=== PATIENT | male | born 1930 | race Caucasian/White ===

== ENCOUNTER 2017-04-21 18:02 | Inpatient (IN) | payer MEDICARE, OTHER ==
[~2017-04-21] VITALS: Ht 175.3 cm; Wt 57.4 kg
[~2017-04-21 18:02] MED LIST: ACID1TAB3 PO; ACID1TAB7 PO; CEFD300C37 PO; CYAN10008 PO; DRON400T PO; FIDA200T PO; FLUT1AER INH; FLUT1DIS3 INH; MAGN400T26 PO; METR500T PO; OMEP-110 PO; TAMS0.4C2 PO; TRAM50TA2 PO; VANC1VIA3 PO; VANC250C2 PO; WARF2TAB PO; WARF3TAB PO
[2017-04-21] MEDS ORDERED: METO25TA35 PO (18:26)
[2017-04-21] MEDS ORDERED: CHOL10002 PO (18:29)
[2017-04-21] MEDS ORDERED: MORPHINE SULFATE 4 MG/ML, 1ML IVPush PRN ×2 (18:30→21:30)
[2017-04-21] MEDS ORDERED: ONDANSETRON 2MG/ML, 2ML IVPush ONE (18:30)
[2017-04-21 18:34] LABS: HEMATOCRIT 37.2 % (39.2-51.8); HEMOGLOBIN 12.4 g/dL (13.7-18.0); WHITE BLOOD COUNT 7.4 x10^3/uL (3.4-10)
[2017-04-21 18:45] LABS: BLOOD UREA NITROGEN 28 mg/dL (7-18)
[2017-04-21 18:57] LABS: IS PT STATUS REG ER OR PRE ER? YES
[2017-04-21] MEDS ORDERED: SODIUM CHLORIDE 0.9% 1,000ML IVBOLUS ONE (19:00)
[2017-04-21] MEDS ORDERED: MORPHINE SULFATE 4 MG/ML, 1ML ONE (19:05)
[2017-04-21] MEDS ORDERED: ONDANSETRON 2MG/ML, 2ML ONE (19:05)
[2017-04-21] MEDS ORDERED: OMNIPAQUE 350 MG/ML, 100ML BOTTLE ONE (20:11)
[2017-04-21] MEDS ORDERED: SODIUM CHLORIDE 0.9% 1,000 ML IV ONE (21:16)
[2017-04-21] MEDS ORDERED: ONDANSETRON 2MG/ML, 2ML IVPush PRN (21:30)
[2017-04-21] MEDS ORDERED: ACETAMINOPHEN 325 MG TABLET PO PRN (22:00)
[2017-04-21] MEDS ORDERED: TEMAZEPAM 15 MG CAPSULE PO PRN (22:00)
[2017-04-21] MEDS ORDERED: ONDANSETRON ODT 4 MG PO PRN (22:00)
[2017-04-21] MEDS ORDERED: POLYETHYLENE GLYCOL 17 GM PACKET PO PRN (22:00)
[2017-04-21] MEDS ORDERED: LABETALOL 5MG/ML, 20ML IVPush PRN (22:00)
[2017-04-21] MEDS ORDERED: WARFARIN 2 MG TABLET PO-COUM SCH (22:00)
[2017-04-21 22:26] VITALS: BP 131/84
[2017-04-21] MEDS ORDERED: WARFARIN 2 MG TABLET PO-COUM ONE (23:00)
[2017-04-21] MEDS: SODIUM CHLORIDE 0.9% 1,000 ML IV SCH (23:09)
[2017-04-22] MEDS ORDERED: morphine SULFATE 10 MG/ML, 1ML IVPush PRN (01:00)
[2017-04-22] MEDS ORDERED: MORPHINE SULFATE 4 MG/ML, 1ML IVPush PRN (01:00)
[2017-04-22 01:23] LABS: IS PT STATUS REG ER OR PRE ER? NO
[2017-04-22 01:30] VITALS: BP 122/75
[2017-04-22] MEDS ORDERED: ALBUTEROL SULFATE 2.5 MG/3 ML NPPB PRN (04:00)
[2017-04-22 06:58] LABS: HEMATOCRIT 37.9 % (39.2-51.8); HEMOGLOBIN 12.8 g/dL (13.7-18.0); WHITE BLOOD COUNT 11.7 x10^3/uL (3.4-10)
[2017-04-22 07:04] LABS: BLOOD UREA NITROGEN 23 mg/dL (7-18)
[2017-04-22 07:07] LABS: IS PT STATUS REG ER OR PRE ER? NO
[2017-04-22 08:22] VITALS: BP 152/75
[2017-04-22] MEDS ORDERED: CHOLECALCIFEROL 1,000 UNIT TABLET PO SCH (09:00)
[2017-04-22] MEDS: ALBUTEROL SULFATE 2.5 MG/3 ML NPPB SCH ×3 (09:17→21:39)
[2017-04-22] MEDS: CYANOCOBALAMIN 1,000 MCG TABLET PO SCH (10:13)
[2017-04-22] MEDS: METOPROLOL TARTRATE 25 MG TABLET PO SCH (10:13)
[2017-04-22] MEDS: OMEPRAZOLE 20 MG CAPSULE.DR PO SCH (10:13)
[2017-04-22] MEDS: TAMSULOSIN 0.4 MG CAP.ER.24H PO SCH (10:13)
[2017-04-22] MEDS: FLUTICASONE/VILANTEROL 100-25MCG/INH INH SCH (11:20)
[2017-04-22] MEDS: LIDODERM 5% PATCH TD SCH (15:25)
[2017-04-22] MEDS: METHOCARBAMOL 500 MG TABLET PO SCH ×2 (15:25→20:16)
[2017-04-22 15:41] VITALS: BP 123/73
[2017-04-22] MEDS ORDERED: WARFARIN 2 MG TABLET PO-COUM SCH (18:00)
[2017-04-22] MEDS: SODIUM CHLORIDE 0.9% 1,000 ML IV SCH (18:07)
[2017-04-22 19:20] VITALS: BP 114/63
[2017-04-23 01:10] VITALS: BP 127/72
[2017-04-23 06:11] LABS: HEMOGLOBIN 11.9 g/dL (13.7-18.0); WHITE BLOOD COUNT 8.9 x10^3/uL (3.4-10)
[2017-04-23 06:13] LABS: BLOOD UREA NITROGEN 21 mg/dL (7-18)
[2017-04-23] MEDS: METHOCARBAMOL 500 MG TABLET PO SCH ×4 (06:26→21:19)
[2017-04-23 06:36] VITALS: BP 139/83
[2017-04-23] MEDS: METOPROLOL TARTRATE 25 MG TABLET PO SCH ×3 (09:00→18:40)
[2017-04-23] MEDS: OMEPRAZOLE 20 MG CAPSULE.DR PO SCH (09:31)
[2017-04-23] MEDS: CYANOCOBALAMIN 1,000 MCG TABLET PO SCH (09:31)
[2017-04-23] MEDS: TAMSULOSIN 0.4 MG CAP.ER.24H PO SCH (09:32)
[2017-04-23] MEDS: ALBUTEROL SULFATE 2.5 MG/3 ML NPPB SCH ×2 (09:32→14:00)
[2017-04-23] MEDS: FLUTICASONE/VILANTEROL 100-25MCG/INH INH SCH (09:32)
[2017-04-23] MEDS: HYDROcodone/APAP 5/325 TABLET PO PRN ×2 (12:25→15:57)
[2017-04-23] MEDS: SODIUM CHLORIDE 0.9% 1,000 ML IV SCH ×2 (12:28→18:31)
[2017-04-23 14:19] VITALS: BP 108/59
[2017-04-23] MEDS: LIDODERM 5% PATCH TD SCH (15:58)
[2017-04-23] MEDS ORDERED: CHOLECALCIFEROL 1,000 UNIT TABLET PO SCH (18:00)
[2017-04-23] MEDS ORDERED: WARFARIN 2 MG TABLET PO-COUM SCH (18:00)
[2017-04-23 19:18] VITALS: BP 99/61
[2017-04-23] MEDS ORDERED: METOPROLOL TARTRATE 25 MG TABLET PO SCH (21:00)
[2017-04-23] MEDS ORDERED: ALBUTEROL SULFATE 2.5 MG/3 ML NPPB PRN (21:30)
[2017-04-24 01:01] VITALS: BP 115/76
[2017-04-24] MEDS: SODIUM CHLORIDE 0.9% 1,000 ML IV SCH (03:59)
[2017-04-24] MEDS: METHOCARBAMOL 500 MG TABLET PO SCH ×2 (06:13→10:06)
[2017-04-24] MEDS: HYDROcodone/APAP 5/325 TABLET PO PRN ×2 (06:17→10:06)
[2017-04-24 08:00] VITALS: BP 103/65
[2017-04-24] MEDS: TAMSULOSIN 0.4 MG CAP.ER.24H PO SCH (10:06)
[2017-04-24] MEDS: OMEPRAZOLE 20 MG CAPSULE.DR PO SCH (10:06)
[2017-04-24] MEDS: METOPROLOL TARTRATE 25 MG TABLET PO SCH (10:06)
[2017-04-24] MEDS: CYANOCOBALAMIN 1,000 MCG TABLET PO SCH (10:06)
[2017-04-24] MEDS: FLUTICASONE/VILANTEROL 100-25MCG/INH INH SCH (10:06)
[2017-04-24 13:27] VITALS: BP 105/60
[2017-04-24] MEDS ORDERED: METO25TA35 PO (16:00)
[2017-04-24] MEDS ORDERED: ACET325T14 PO (16:00)
[2017-04-24] MEDS ORDERED: CHOL10002 PO (16:00)
[2017-04-24] MEDS ORDERED: TRAM50TA2 PO (16:00)
[2017-04-24] MEDS ORDERED: ATOR20TA9 PO (16:00)
[2017-04-24] MEDS ORDERED: WARF1TAB PO-COUM (16:00)
[2017-04-24] MEDS ORDERED: LIDO700A5 TD (16:00)
[2017-04-24] MEDS ORDERED: METH500T7 PO (16:00)
[2017-04-24] MEDS ORDERED: WARFARIN 1 MG TABLET PO-COUM SCH (18:00)
[2017-04-24] MEDS ORDERED: ATORVASTATIN 20 MG TABLET PO SCH (21:00)
== END 2017-04-24 18:44 | DRG 291 ==
LOC: ED 18:49 → EDIP 21:16 → 5SO 22:24
DX: I13.0 Hypertensive heart and chronic kidney disease with heart failure and stage 1 through stage 4 chronic kidney disease, or unspecified chronic kidney disease (principal); J96.20 Acute and chronic respiratory failure, unspecified whether with hypoxia or hypercapnia; J18.9 Pneumonia, unspecified organism; I48.92 Unspecified atrial flutter; N18.4 Chronic kidney disease, stage 4 (severe); D68.59 Other primary thrombophilia; M48.54XA Collapsed vertebra, not elsewhere classified, thoracic region, initial encounter for fracture; G90.8 Other disorders of autonomic nervous system; I48.0 Paroxysmal atrial fibrillation; D53.1 Other megaloblastic anemias, not elsewhere classified; D63.8 Anemia in other chronic diseases classified elsewhere; G25.0 Essential tremor; I34.0 Nonrheumatic mitral (valve) insufficiency; I35.8 Other nonrheumatic aortic valve disorders; I50.9 Heart failure, unspecified; I65.29 Occlusion and stenosis of unspecified carotid artery; J44.9 Chronic obstructive pulmonary disease, unspecified; K21.9 Gastro-esophageal reflux disease without esophagitis; K44.9 Diaphragmatic hernia without obstruction or gangrene; Z66 Do not resuscitate; Z79.01 Long term (current) use of anticoagulants; Z80.0 Family history of malignant neoplasm of digestive organs; Z86.73 Personal history of transient ischemic attack (TIA), and cerebral infarction without residual deficits; Z87.11 Personal history of peptic ulcer disease; W19.XXXA Unspecified fall, initial encounter; Y93.89 Activity, other specified; Y92.89 Other specified places as the place of occurrence of the external cause; Y99.8 Other external cause status; R33.8 Other retention of urine
CPT/HCPCS: 36415; 70450; 71275; 72125; 72128; 72131; 80048; 80061; 82040; 82306; 82607; 82746; 83605; 83735; 84100; 84145; 84439; 84443; 84484; 85025; 85610; 93005; 93306; 93880; 94640; 96361; 96374; 96375; J2405; J7613; Q9967; J2270; J7030

== ENCOUNTER 2017-05-09 20:26 | Inpatient (IN) | payer MEDICARE, OTHER ==
[~2017-05-09] VITALS: Ht 175.3 cm; Wt 52.1 kg
[~2017-05-09 20:26] MED LIST changes: +ACET325T14 PO; +ATOR20TA9 PO; +CHOL10002 PO; +CYAN100072 PO; -CYAN10008 PO; +LIDO700A5 TD; +METH500T7 PO; +METO25TA35 PO; +WARF1TAB PO-COUM
[2017-05-09] MEDS ORDERED: DIPH,PERTUSS(ACELL),TET VAC/PF 0.5 ML IM-VACC ONE (21:00)
[2017-05-09 21:08] LABS: HEMATOCRIT 37.2 % (39.2-51.8); HEMOGLOBIN 12.3 g/dL (13.7-18.0); WHITE BLOOD COUNT 7.7 x10^3/uL (3.4-10)
[2017-05-09 21:19] LABS: ASPARTATE AMINO TRANSFERASE 20 U/L (15-37); BLOOD UREA NITROGEN 39 mg/dL (7-18)
[2017-05-09] MEDS: LIDODERM 5% PATCH TD SCH (23:30)
[2017-05-09] MEDS ORDERED: ACETAMINOPHEN 325 MG TABLET PO PRN (23:30)
[2017-05-10] VITALS (7 sets, daily range): BP systolic 113–147; BP diastolic 66–85
[2017-05-10] MEDS ORDERED: DIPH,PERTUSS(ACELL),TET VAC/PF 0.5 ML IM-VACC ONE (00:02)
[2017-05-10] MEDS: CHOLECALCIFEROL 1,000 UNIT TABLET PO SCH (09:16)
[2017-05-10] MEDS: METOPROLOL TARTRATE 25 MG TABLET PO SCH ×2 (09:16→21:01)
[2017-05-10] MEDS: OMEPRAZOLE 20 MG CAPSULE.DR PO SCH (09:16)
[2017-05-10] MEDS: TAMSULOSIN 0.4 MG CAP.ER.24H PO SCH (09:16)
[2017-05-10] MEDS: CYANOCOBALAMIN 1,000 MCG TABLET PO SCH (09:16)
[2017-05-10 16:27] LABS: ASPARTATE AMINO TRANSFERASE 17 U/L (15-37); BLOOD UREA NITROGEN 29 mg/dL (7-18)
[2017-05-10] MEDS: ATORVASTATIN 20 MG TABLET PO SCH (21:01)
[2017-05-10] MEDS: LIDODERM 5% PATCH TD SCH (21:22)
[2017-05-11 04:00] VITALS: BP 121/72
[2017-05-11 05:12] LABS: HEMATOCRIT 37.3 % (39.2-51.8); HEMOGLOBIN 12.3 g/dL (13.7-18.0); WHITE BLOOD COUNT 6.8 x10^3/uL (3.4-10)
[2017-05-11 07:24] VITALS: BP 117/64
[2017-05-11 10:03] LABS: HEMATOCRIT 39.4 % (39.2-51.8); HEMOGLOBIN 12.9 g/dL (13.7-18.0); WHITE BLOOD COUNT 8.1 x10^3/uL (3.4-10)
[2017-05-11 10:12] LABS: BLOOD UREA NITROGEN 28 mg/dL (7-18)
[2017-05-11] MEDS: CYANOCOBALAMIN 1,000 MCG TABLET PO SCH (10:28)
[2017-05-11] MEDS: METOPROLOL TARTRATE 25 MG TABLET PO SCH ×2 (10:28→20:51)
[2017-05-11] MEDS: TAMSULOSIN 0.4 MG CAP.ER.24H PO SCH (10:28)
[2017-05-11] MEDS: CHOLECALCIFEROL 1,000 UNIT TABLET PO SCH (10:28)
[2017-05-11] MEDS: OMEPRAZOLE 20 MG CAPSULE.DR PO SCH (10:28)
[2017-05-11 13:46] VITALS: BP 103/64
[2017-05-11 16:31] VITALS: BP 118/56
[2017-05-11 20:41] VITALS: BP 132/87
[2017-05-11] MEDS: ATORVASTATIN 20 MG TABLET PO SCH (20:51)
[2017-05-11] MEDS: LIDODERM 5% PATCH TD SCH (23:30)
[2017-05-12 03:35] VITALS: BP 117/66
[2017-05-12 07:25] VITALS: BP_SYST 117; BP_SYST 125; BP_DIAS 45; BP_DIAS 82
[2017-05-12 07:27] VITALS: BP 135/81
[2017-05-12 07:29] VITALS: BP 123/76
[2017-05-12] MEDS: CYANOCOBALAMIN 1,000 MCG TABLET PO SCH (09:45)
[2017-05-12] MEDS: METOPROLOL TARTRATE 25 MG TABLET PO SCH ×2 (09:46→21:16)
[2017-05-12] MEDS: TAMSULOSIN 0.4 MG CAP.ER.24H PO SCH (09:46)
[2017-05-12] MEDS: OMEPRAZOLE 20 MG CAPSULE.DR PO SCH (09:46)
[2017-05-12] MEDS: CHOLECALCIFEROL 1,000 UNIT TABLET PO SCH (09:48)
[2017-05-12 13:17] VITALS: BP 104/52
[2017-05-12 18:49] VITALS: BP 116/60
[2017-05-12] MEDS: LIDODERM 5% PATCH TD SCH ×2 (21:16→21:17)
[2017-05-12] MEDS: ATORVASTATIN 20 MG TABLET PO SCH (21:16)
[2017-05-13 08:00] VITALS: BP 120/74
[2017-05-13] MEDS: OMEPRAZOLE 20 MG CAPSULE.DR PO SCH (09:24)
[2017-05-13] MEDS: METOPROLOL TARTRATE 25 MG TABLET PO SCH (09:24)
[2017-05-13] MEDS: CYANOCOBALAMIN 1,000 MCG TABLET PO SCH (09:24)
[2017-05-13] MEDS: CHOLECALCIFEROL 1,000 UNIT TABLET PO SCH (09:24)
[2017-05-13] MEDS: TAMSULOSIN 0.4 MG CAP.ER.24H PO SCH (09:24)
[2017-05-13 10:01] LABS: HEMATOCRIT 40.1 % (39.2-51.8); HEMOGLOBIN 13.1 g/dL (13.7-18.0); WHITE BLOOD COUNT 8.1 x10^3/uL (3.4-10)
[2017-05-13 10:04] LABS: BLOOD UREA NITROGEN 35 mg/dL (7-18)
[2017-05-13 12:28] VITALS: BP 123/59
== END 2017-05-13 14:07 | disposition home or self-care (01) | DRG 604 ==
LOC: ED 21:08 → EDIP 22:35 → 4WST 05-10 00:19 → 4EST 05-11 20:13
PROVIDERS: ADMIT Hospitalist; ATTEND Hospitalist
PROC: 0HQ1XZZ Repair Face Skin, External Approach (ICD-10-PCS; principal; 2017-05-09)
DX: S00.03XA Contusion of scalp, initial encounter (principal); S06.5X9A Traumatic subdural hemorrhage with loss of consciousness of unspecified duration, initial encounter; J96.10 Chronic respiratory failure, unspecified whether with hypoxia or hypercapnia; N18.4 Chronic kidney disease, stage 4 (severe); D68.59 Other primary thrombophilia; M48.50XA Collapsed vertebra, not elsewhere classified, site unspecified, initial encounter for fracture; I13.0 Hypertensive heart and chronic kidney disease with heart failure and stage 1 through stage 4 chronic kidney disease, or unspecified chronic kidney disease; I50.9 Heart failure, unspecified; E44.1 Mild protein-calorie malnutrition; Z68.1 Body mass index [BMI] 19.9 or less, adult; S01.112A Laceration without foreign body of left eyelid and periocular area, initial encounter; G62.9 Polyneuropathy, unspecified; I48.0 Paroxysmal atrial fibrillation; J44.9 Chronic obstructive pulmonary disease, unspecified; G25.0 Essential tremor; W01.0XXA Fall on same level from slipping, tripping and stumbling without subsequent striking against object, initial encounter; D53.9 Nutritional anemia, unspecified; D63.8 Anemia in other chronic diseases classified elsewhere; D75.89 Other specified diseases of blood and blood-forming organs; K21.9 Gastro-esophageal reflux disease without esophagitis; N40.1 Benign prostatic hyperplasia with lower urinary tract symptoms; Z66 Do not resuscitate; Z80.0 Family history of malignant neoplasm of digestive organs; Z86.19 Personal history of other infectious and parasitic diseases; Z88.8 Allergy status to other drugs, medicaments and biological substances; Z86.73 Personal history of transient ischemic attack (TIA), and cerebral infarction without residual deficits; Z87.11 Personal history of peptic ulcer disease; Y93.89 Activity, other specified; Y92.89 Other specified places as the place of occurrence of the external cause; Y99.8 Other external cause status
CPT/HCPCS: 12011; 36415; 70450; 70486; 72125; 80048; 80053; 82040; 85025; 85610; 90471; 90715; 93005

== ENCOUNTER 2017-05-29 07:53 | Inpatient (IN) | payer MEDICARE, OTHER ==
[~2017-05-29] VITALS: Ht 180.3 cm; Wt 52.4 kg
[2017-05-29] MEDS ORDERED: SODIUM CHLORIDE 0.9% 1,000 ML IV ONE (08:04)
[2017-05-29] MEDS ORDERED: LORazepam 2 MG/ML, 1ML ONE (08:05)
[2017-05-29] MEDS ORDERED: LORazepam 2 MG/ML, 1ML IVPush ONE (08:30)
[2017-05-29] MEDS ORDERED: SODIUM CHLORIDE 0.9% 1,000ML IVBOLUS ONE (08:30)
[2017-05-29 08:41] LABS: HEMATOCRIT 35.3 % (39.2-51.8); HEMOGLOBIN 11.8 g/dL (13.7-18.0); WHITE BLOOD COUNT 11.7 x10^3/uL (3.4-10)
[2017-05-29 08:48] LABS: BLOOD UREA NITROGEN 20 mg/dL (7-18)
[2017-05-29] MEDS ORDERED: METO50TA82 PO (10:30)
[2017-05-29 11:38] LABS: IS PT STATUS REG ER OR PRE ER? YES
[2017-05-29] MEDS ORDERED: POLYETHYLENE GLYCOL 17 GM PACKET PO PRN (13:00)
[2017-05-29] MEDS ORDERED: hydrALAzine 20 MG/ML, 1ML IV PRN (13:00)
[2017-05-29] MEDS ORDERED: ONDANSETRON 2MG/ML, 2ML IVPush PRN (13:00)
[2017-05-29] MEDS ORDERED: BISACODYL 10 MG SUPP PR PRN (13:00)
[2017-05-29] MEDS ORDERED: ACETAMINOPHEN 325 MG TABLET PO PRN (13:00)
[2017-05-29] MEDS ORDERED: ONDANSETRON ODT 4 MG PO PRN (13:00)
[2017-05-29] MEDS ORDERED: DOCUSATE 100 MG CAPSULE PO PRN (13:00)
[2017-05-29] MEDS ORDERED: ALBUTEROL SULFATE 2.5 MG/3 ML NPPB PRN (14:00)
[2017-05-29] MEDS: DOXYCYCLINE 100MG TABLET PO SCH ×2 (14:19→21:34)
[2017-05-29] MEDS: CEFTRIAXONE PMX 1GM/50ML 50 ML IV SCH (14:19)
[2017-05-29] MEDS: METOPROLOL TARTRATE 50 MG TABLET PO SCH (14:19)
[2017-05-29] MEDS: SODIUM CHLORIDE 0.9% 1,000 ML IV SCH (14:19)
[2017-05-29] MEDS ORDERED: WARFARIN 1 MG TABLET PO-COUM ONE (18:00)
[2017-05-29] MEDS ORDERED: WARFARIN 1 MG TABLET PO-COUM SCH (18:00)
[2017-05-29] MEDS ORDERED: LORazepam 0.5MG TABLET PO PRN (18:00)
[2017-05-29 19:13] VITALS: BP 116/73
[2017-05-29 20:55] VITALS: BP 112/68
[2017-05-29] MEDS: FLUTICASONE/VILANTEROL 100-25MCG/INH INH SCH (21:00)
[2017-05-29] MEDS: GUAIFENESIN ER 600 MG TABLET PO SCH (21:34)
[2017-05-30 01:10] VITALS: BP 100/57
[2017-05-30] MEDS: SODIUM CHLORIDE 0.9% 1,000 ML IV SCH (02:29)
[2017-05-30 05:01] LABS: HEMATOCRIT 29.5 % (39.2-51.8); HEMOGLOBIN 9.9 g/dL (13.7-18.0); WHITE BLOOD COUNT 11.1 x10^3/uL (3.4-10)
[2017-05-30 05:03] LABS: BLOOD UREA NITROGEN 20 mg/dL (7-18)
[2017-05-30 05:06] LABS: ASPARTATE AMINO TRANSFERASE 14 U/L (15-37)
[2017-05-30 07:36] VITALS: BP 108/60
[2017-05-30] MEDS: DOXYCYCLINE 100MG TABLET PO SCH ×2 (08:56→21:00)
[2017-05-30] MEDS: CYANOCOBALAMIN 1,000 MCG TABLET PO SCH (08:56)
[2017-05-30] MEDS: GUAIFENESIN ER 600 MG TABLET PO SCH ×2 (08:57→21:00)
[2017-05-30] MEDS: METOPROLOL TARTRATE 50 MG TABLET PO SCH (08:57)
[2017-05-30] MEDS ORDERED: TAMSULOSIN 0.4 MG CAP.ER.24H PO SCH (09:00)
[2017-05-30] MEDS: FLUTICASONE/VILANTEROL 100-25MCG/INH INH SCH (10:03)
[2017-05-30] MEDS: CEFTRIAXONE PMX 1GM/50ML 50 ML IV SCH (13:17)
[2017-05-30 15:41] VITALS: BP 139/90
[2017-05-30] MEDS ORDERED: DO NOT GIVE MC SCH (18:00)
[2017-05-30 18:56] VITALS: BP 131/69
[2017-05-30] MEDS ORDERED: hydrALAzine 20 MG/ML, 1ML IV PRN (19:30)
[2017-05-30] MEDS ORDERED: POLYETHYLENE GLYCOL 17 GM PACKET PO PRN (19:30)
[2017-05-30] MEDS ORDERED: ONDANSETRON 2MG/ML, 2ML IVPush PRN (19:30)
[2017-05-30] MEDS ORDERED: ACETAMINOPHEN 325 MG TABLET PO PRN (19:30)
[2017-05-30] MEDS ORDERED: ONDANSETRON ODT 4 MG PO PRN (19:30)
[2017-05-30] MEDS ORDERED: DOCUSATE 100 MG CAPSULE PO PRN (19:30)
[2017-05-30] MEDS ORDERED: BISACODYL 10 MG SUPP PR PRN (19:30)
[2017-05-31 00:46] VITALS: BP 120/64
[2017-05-31 07:00] VITALS: BP 154/82
[2017-05-31] MEDS: GUAIFENESIN ER 600 MG TABLET PO SCH ×2 (08:34→21:25)
[2017-05-31] MEDS: TAMSULOSIN 0.4 MG CAP.ER.24H PO SCH (08:34)
[2017-05-31] MEDS: CYANOCOBALAMIN 1,000 MCG TABLET PO SCH (08:34)
[2017-05-31] MEDS: METOPROLOL TARTRATE 50 MG TABLET PO SCH (08:34)
[2017-05-31] MEDS: FLUTICASONE/VILANTEROL 100-25MCG/INH INH SCH (08:34)
[2017-05-31] MEDS: DOXYCYCLINE 100MG TABLET PO SCH ×2 (08:34→21:25)
[2017-05-31 12:25] VITALS: BP 147/72
[2017-05-31] MEDS: CEFTRIAXONE PMX 1GM/50ML 50 ML IV SCH (13:26)
[2017-05-31] MEDS ORDERED: WARFARIN 1 MG TABLET PO-COUM SCH (18:00)
[2017-05-31 20:27] VITALS: BP 140/84
[2017-05-31] MEDS: LOPERAMIDE 2 MG CAPSULE PO PRN (21:25)
[2017-06-01 03:53] VITALS: BP 135/64
[2017-06-01 05:33] LABS: BLOOD UREA NITROGEN 24 mg/dL (7-18)
[2017-06-01 05:36] LABS: HEMATOCRIT 30.8 % (39.2-51.8); HEMOGLOBIN 10.3 g/dL (13.7-18.0)
[2017-06-01 06:02] LABS: ASPARTATE AMINO TRANSFERASE 12 U/L (15-37)
[2017-06-01 08:27] VITALS: BP 139/82
[2017-06-01] MEDS: GUAIFENESIN ER 600 MG TABLET PO SCH ×2 (09:02→20:39)
[2017-06-01] MEDS: FLUTICASONE/VILANTEROL 100-25MCG/INH INH SCH (09:02)
[2017-06-01] MEDS: CYANOCOBALAMIN 1,000 MCG TABLET PO SCH (09:02)
[2017-06-01] MEDS: LOPERAMIDE 2 MG CAPSULE PO PRN (09:02)
[2017-06-01] MEDS: METOPROLOL TARTRATE 50 MG TABLET PO SCH (09:02)
[2017-06-01] MEDS: DOXYCYCLINE 100MG TABLET PO SCH ×2 (09:02→20:39)
[2017-06-01] MEDS: TAMSULOSIN 0.4 MG CAP.ER.24H PO SCH (09:02)
[2017-06-01] MEDS: CEFTRIAXONE PMX 1GM/50ML 50 ML IV SCH (12:00)
[2017-06-01 14:14] VITALS: BP 130/74
[2017-06-01] MEDS ORDERED: WARFARIN 1 MG TABLET PO-COUM ONE (18:00)
[2017-06-01 21:59] VITALS: BP 136/74
[2017-06-02 03:30] VITALS: BP 142/77
[2017-06-02 05:46] LABS: HEMATOCRIT 32.2 % (39.2-51.8); HEMOGLOBIN 10.8 g/dL (13.7-18.0); WHITE BLOOD COUNT 6.3 x10^3/uL (3.4-10)
[2017-06-02 05:56] LABS: BLOOD UREA NITROGEN 23 mg/dL (7-18)
[2017-06-02 07:12] VITALS: BP 125/84
[2017-06-02] MEDS: TAMSULOSIN 0.4 MG CAP.ER.24H PO SCH (07:14)
[2017-06-02] MEDS: CYANOCOBALAMIN 1,000 MCG TABLET PO SCH (07:14)
[2017-06-02] MEDS: GUAIFENESIN ER 600 MG TABLET PO SCH (07:14)
[2017-06-02] MEDS: METOPROLOL TARTRATE 50 MG TABLET PO SCH (07:14)
[2017-06-02] MEDS: DOXYCYCLINE 100MG TABLET PO SCH (07:14)
[2017-06-02] MEDS: FLUTICASONE/VILANTEROL 100-25MCG/INH INH SCH (07:14)
[2017-06-02] MEDS: LOPERAMIDE 2 MG CAPSULE PO PRN (08:40)
[2017-06-02] MEDS ORDERED: LACT1CAP24 PO (11:10)
[2017-06-02] MEDS ORDERED: DOXY100T PO (11:10)
[2017-06-02] MEDS ORDERED: CEFD300C37 PO (11:10)
[2017-06-02] MEDS ORDERED: WARFARIN 2 MG TABLET PO-COUM ONE (18:00)
== END 2017-06-02 12:20 | disposition home health service (06) | DRG 190 ==
LOC: ED 08:07 → EDIP 09:33 → 4EST 12:41 → DCLOUNGE 06-02 12:00
PROVIDERS: ADMIT Hospitalist; ATTEND Internal Medicine
DX: J44.0 Chronic obstructive pulmonary disease with (acute) lower respiratory infection (principal); J18.9 Pneumonia, unspecified organism; E43 Unspecified severe protein-calorie malnutrition; N18.4 Chronic kidney disease, stage 4 (severe); D68.69 Other thrombophilia; I13.0 Hypertensive heart and chronic kidney disease with heart failure and stage 1 through stage 4 chronic kidney disease, or unspecified chronic kidney disease; I50.32 Chronic diastolic (congestive) heart failure; Z68.1 Body mass index [BMI] 19.9 or less, adult; I48.0 Paroxysmal atrial fibrillation; D53.9 Nutritional anemia, unspecified; Z66 Do not resuscitate; N40.1 Benign prostatic hyperplasia with lower urinary tract symptoms; Z79.01 Long term (current) use of anticoagulants; E53.8 Deficiency of other specified B group vitamins; G25.0 Essential tremor; K21.9 Gastro-esophageal reflux disease without esophagitis; R33.8 Other retention of urine; Z86.73 Personal history of transient ischemic attack (TIA), and cerebral infarction without residual deficits; Z87.11 Personal history of peptic ulcer disease; Z87.891 Personal history of nicotine dependence
CPT/HCPCS: 36415; 71010; 71250; 80048; 80053; 81003; 82040; 82607; 82746; 83605; 83735; 84100; 84145; 84443; 84484; 85025; 85610; 85730; 87040; 87070; 87205; 87324; 93005; 96361; 96374; J0696; J2060; J7030

== ENCOUNTER 2017-09-22 12:20 | Inpatient (IN) | payer MEDICARE, OTHER ==
[~2017-09-22] VITALS: Ht 182.9 cm; Wt 51.6 kg
[~2017-09-22 12:20] MED LIST changes: +DOXY100T PO; +LACT1CAP24 PO; +METO50TA82 PO
[2017-09-22] MEDS ORDERED: SODIUM CHLORIDE 0.9% 1,000 ML IV ONE (12:29)
[2017-09-22] MEDS ORDERED: SODIUM CHLORIDE FLUSH 10ML SYR IVF ONE (12:30)
[2017-09-22] MEDS ORDERED: methylPREDNISolone SOD SUCC 125 MG/2 ML IVP ONE (12:30)
[2017-09-22] MEDS ORDERED: ALBUTEROL/IPRATROPIUM 2.5MG/0.5MG, 3 ML ONE ×2 (12:52→14:22)
[2017-09-22 12:56] LABS: BASOPHILS # (AUTO) 0.05 x10^3/uL (0-0.1); BASOPHILS % (AUTO) 0 % (0-1); EOSINOPHILS % (AUTO) 0 % (1-7); LYMPHOCYTES % (AUTO) 11 % (22-44); MD NO; MEAN CORPUSCULAR HEMOGLOBIN 34.1 pg (27.5-34.5); MEAN CORPUSCULAR HGB CONC 33.3 g/dL (33.2-36.2); MEAN CORPUSCULAR VOLUME 102.6 fL (81-97); MEAN PLATELET VOLUME 7.7 fL (7.4-10.4); MONOCYTES # (AUTO) 1.05 x10^3/uL (0.2-0.8); MONOCYTES % (AUTO) 9 % (2-9); NEUTROPHILS # (AUTO) 9.28 x10^3/uL (1.8-6.8); NEUTROPHILS % (AUTO) 80 % (42-75); PLATELET COUNT 245 x10^3/uL (130-400); RED BLOOD COUNT 3.63 x10^6/uL (4.38-5.82); RED CELL DISTRIBUTION WIDTH 15.1 % (9.4-14.8)
[2017-09-22] MEDS ORDERED: ALBUTEROL/IPRATROPIUM 2.5MG/0.5MG, 3 ML NEB ONE (13:00)
[2017-09-22 13:06] LABS: RAPID INFLUENZA A Negative (Negative); RAPID INFLUENZA B Negative (Negative)
[2017-09-22 13:08] LABS: ANION GAP 10 mmol/L (5-15); CALCIUM 8.1 mg/dL (8.5-10.1); CHLORIDE 104 mmol/L (98-107); CREATININE 1.69 mg/dL (0.7-1.3)
[2017-09-22] MEDS ORDERED: DILTIAZEM 5 MG/ML, 5ML ONE (13:15)
[2017-09-22] MEDS ORDERED: methylPREDNISolone SOD SUCC 125 MG/2 ML ONE (13:15)
[2017-09-22] MEDS ORDERED: AZITHROMYCIN 500 MG in SODIUM CHLORIDE 0.9% 250 ML IVPB ONE (13:30)
[2017-09-22] MEDS ORDERED: DILTIAZEM 125 MG in SODIUM CHLORIDE 0.9% 100 ML IV PRN (13:30)
[2017-09-22] MEDS ORDERED: CEFTRIAXONE PMX 1GM/50ML 50 ML IVPB ONE (13:30)
[2017-09-22] MEDS ORDERED: DILTIAZEM 5 MG/ML, 5ML IVPush ONE (13:30)
[2017-09-22] MEDS ORDERED: SODIUM CHLORIDE 0.9% 1,000ML IVBOLUS ONE (13:30)
[2017-09-22 13:34] LABS: INTERNATIONAL NORMALIZED RATIO 2.21 (0.93-1.1); PROTHROMBIN TIME 22.6 Seconds (9.6-11.5)
[2017-09-22] MEDS ORDERED: CEFTRIAXONE PMX 1GM/50ML 50 ML ONE (13:43)
[2017-09-22] MEDS ORDERED: FUROSEMIDE 20 MG/2 ML IV ONE (14:00)
[2017-09-22] MEDS ORDERED: hydrALAzine 20 MG/ML, 1ML IVPush PRN (14:00)
[2017-09-22] MEDS ORDERED: HEPARIN 5,000 UNITS/ML, 1ML SQ SCH (14:00)
[2017-09-22] MEDS ORDERED: DOCUSATE 100 MG CAPSULE PO PRN (14:00)
[2017-09-22] MEDS ORDERED: POLYETHYLENE GLYCOL 17 GM PACKET PO PRN (14:00)
[2017-09-22] MEDS ORDERED: ACETAMINOPHEN 325 MG TABLET PO PRN (14:00)
[2017-09-22] MEDS ORDERED: BISACODYL 10 MG SUPP PR PRN (14:00)
[2017-09-22] MEDS: CEFTRIAXONE PMX 1GM/50ML 50 ML IV SCH (14:15)
[2017-09-22] MEDS: ALBUTEROL/IPRATROPIUM 2.5MG/0.5MG, 3 ML NPPB SCH ×2 (14:28→20:00)
[2017-09-22 15:08] VITALS: BP 91/52
[2017-09-22] MEDS: DILTIAZEM 125 MG in SODIUM CHLORIDE 0.9% 100 ML IV PRN ×2 (15:26→21:57)
[2017-09-22] MEDS: DOXYCYCLINE 100 MG in DEXTROSE 5% 250 ML IV SCH (15:34)
[2017-09-22] MEDS ORDERED: WARFARIN 1 MG TABLET PO-COUM ONE (18:00)
[2017-09-22 19:01] VITALS: BP 99/58
[2017-09-22] MEDS: GUAIFENESIN ER 600 MG TABLET PO SCH (21:56)
[2017-09-22] MEDS: SODIUM CHLORIDE FLUSH 10ML SYR IVF SCH (21:57)
[2017-09-22] MEDS: LACTOBACILLUS CHEW TABLET PO SCH (21:57)
[2017-09-22 22:10] VITALS: BP 89/48
[2017-09-22 22:13] VITALS: BP 98/55
[2017-09-23 01:12] VITALS: BP 95/50
[2017-09-23] MEDS: DOXYCYCLINE 100 MG in DEXTROSE 5% 250 ML IV SCH (03:18)
[2017-09-23] MEDS: ALBUTEROL/IPRATROPIUM 2.5MG/0.5MG, 3 ML NPPB SCH (06:54)
[2017-09-23 07:20] LABS: ANION GAP 11 mmol/L (5-15); CALCIUM 7.9 mg/dL (8.5-10.1); CHLORIDE 103 mmol/L (98-107); CREATININE 1.87 mg/dL (0.7-1.3)
[2017-09-23 07:27] LABS: BASOPHILS % (AUTO) 0 % (0-1); EOSINOPHILS % (AUTO) 0 % (1-7); HEMOGRAM NOTE RECHECKED; LYMPHOCYTES # (AUTO) 0.51 x10^3/uL (1-3.4); LYMPHOCYTES % (AUTO) 6 % (22-44); MD NO; MEAN CORPUSCULAR HEMOGLOBIN 34.5 pg (27.5-34.5); MEAN CORPUSCULAR HGB CONC 33.6 g/dL (33.2-36.2); MEAN CORPUSCULAR VOLUME 102.9 fL (81-97); MEAN PLATELET VOLUME 8.1 fL (7.4-10.4); MONOCYTES # (AUTO) 0.35 x10^3/uL (0.2-0.8); MONOCYTES % (AUTO) 4 % (2-9); NEUTROPHILS # (AUTO) 8.13 x10^3/uL (1.8-6.8); NEUTROPHILS % (AUTO) 90 % (42-75); PLATELET COUNT 214 x10^3/uL (130-400); RED BLOOD COUNT 3.14 x10^6/uL (4.38-5.82); RED CELL DISTRIBUTION WIDTH 14.4 % (9.4-14.8)
[2017-09-23 07:31] VITALS: BP 106/67
[2017-09-23 07:47] LABS: INTERNATIONAL NORMALIZED RATIO 2.75 (0.93-1.1)
[2017-09-23] MEDS ORDERED: DILTIAZEM 125 MG in SODIUM CHLORIDE 0.9% 100 ML IV SCH (08:00)
[2017-09-23] MEDS ORDERED: ALBUTEROL/IPRATROPIUM 2.5MG/0.5MG, 3 ML NPPB PRN (08:00)
[2017-09-23] MEDS: GUAIFENESIN ER 600 MG TABLET PO SCH ×2 (08:30→20:31)
[2017-09-23] MEDS: CHOLECALCIFEROL 1,000 UNIT TABLET PO SCH (08:30)
[2017-09-23] MEDS: CYANOCOBALAMIN 1,000 MCG TABLET PO SCH (08:30)
[2017-09-23] MEDS: SODIUM CHLORIDE FLUSH 10ML SYR IVF SCH ×2 (08:30→20:33)
[2017-09-23] MEDS: TAMSULOSIN 0.4 MG CAP.ER.24H PO SCH (08:31)
[2017-09-23] MEDS: METOPROLOL TARTRATE 50 MG TABLET PO SCH (08:39)
[2017-09-23] MEDS: LACTOBACILLUS CHEW TABLET PO SCH ×2 (08:39→20:31)
[2017-09-23] MEDS: FLUTICASONE/VILANTEROL 100-25MCG/INH INH SCH (11:15)
[2017-09-23] MEDS ORDERED: DOXYCYCLINE 100MG TABLET PO SCH (12:15)
[2017-09-23 14:05] VITALS: BP 111/66
[2017-09-23] MEDS: CEFTRIAXONE PMX 1GM/50ML 50 ML IV SCH (14:41)
[2017-09-23] MEDS ORDERED: WARFARIN 1 MG TABLET PO-COUM SCH (18:00)
[2017-09-23 19:09] VITALS: BP 117/55
[2017-09-23] MEDS: DOXYCYCLINE 100MG TABLET PO SCH (20:31)
[2017-09-24 00:37] LABS: OCCULT BLOOD POSITIVE (NEGATIVE)
[2017-09-24 01:53] VITALS: BP 123/80
[2017-09-24 06:00] LABS: BASOPHILS # (AUTO) 0.01 x10^3/uL (0-0.1); BASOPHILS % (AUTO) 0 % (0-1); EOSINOPHILS % (AUTO) 0 % (1-7); LYMPHOCYTES # (AUTO) 0.67 x10^3/uL (1-3.4); LYMPHOCYTES % (AUTO) 5 % (22-44); MD NO; MEAN CORPUSCULAR HEMOGLOBIN 34.2 pg (27.5-34.5); MEAN CORPUSCULAR HGB CONC 33.2 g/dL (33.2-36.2); MEAN PLATELET VOLUME 8.1 fL (7.4-10.4); MONOCYTES # (AUTO) 0.73 x10^3/uL (0.2-0.8); MONOCYTES % (AUTO) 5 % (2-9); NEUTROPHILS # (AUTO) 13.28 x10^3/uL (1.8-6.8); NEUTROPHILS % (AUTO) 90 % (42-75); PLATELET COUNT 246 x10^3/uL (130-400); RED BLOOD COUNT 3.36 x10^6/uL (4.38-5.82); RED CELL DISTRIBUTION WIDTH 14.8 % (9.4-14.8)
[2017-09-24 06:04] LABS: INTERNATIONAL NORMALIZED RATIO 3.84 (0.93-1.1); PROTHROMBIN TIME 38.9 Seconds (9.6-11.5)
[2017-09-24 06:05] LABS: ANION GAP 8 mmol/L (5-15); CALCIUM 8.6 mg/dL (8.5-10.1); CHLORIDE 108 mmol/L (98-107); CREATININE 1.55 mg/dL (0.7-1.3)
[2017-09-24] MEDS ORDERED: [UNRECOGNIZED DRUG - REMARK] XX PRN (07:30)
[2017-09-24 08:08] VITALS: BP 122/74
[2017-09-24] MEDS: SODIUM CHLORIDE FLUSH 10ML SYR IVF SCH (09:09)
[2017-09-24] MEDS: FLUTICASONE/VILANTEROL 100-25MCG/INH INH SCH (09:09)
[2017-09-24] MEDS: TAMSULOSIN 0.4 MG CAP.ER.24H PO SCH (09:10)
[2017-09-24] MEDS: METOPROLOL TARTRATE 50 MG TABLET PO SCH (09:10)
[2017-09-24] MEDS: GUAIFENESIN ER 600 MG TABLET PO SCH (09:10)
[2017-09-24] MEDS: LACTOBACILLUS CHEW TABLET PO SCH (09:10)
[2017-09-24] MEDS: CYANOCOBALAMIN 1,000 MCG TABLET PO SCH (09:10)
[2017-09-24] MEDS: CHOLECALCIFEROL 1,000 UNIT TABLET PO SCH (09:10)
[2017-09-24] MEDS: DOXYCYCLINE 100MG TABLET PO SCH (09:10)
[2017-09-24] MEDS ORDERED: DOXY100T PO (13:18)
[2017-09-24] MEDS ORDERED: CEFD300C37 PO (13:18)
[2017-09-24] MEDS ORDERED: GUAI600T31 PO (13:18)
[2017-09-24 13:41] VITALS: BP 128/55
== END 2017-09-24 15:36 | disposition home health service (06) | DRG 871 ==
LOC: ED 13:15 → EDIP 13:16 → ED 13:58 → 5SO 14:51
PROVIDERS: ADMIT Internal Medicine; ATTEND Internal Medicine
DX: A41.9 Sepsis, unspecified organism (principal); J18.9 Pneumonia, unspecified organism; J96.20 Acute and chronic respiratory failure, unspecified whether with hypoxia or hypercapnia; E44.0 Moderate protein-calorie malnutrition; D68.69 Other thrombophilia; I13.0 Hypertensive heart and chronic kidney disease with heart failure and stage 1 through stage 4 chronic kidney disease, or unspecified chronic kidney disease; N18.4 Chronic kidney disease, stage 4 (severe); N17.9 Acute kidney failure, unspecified; I48.0 Paroxysmal atrial fibrillation; E87.1 Hypo-osmolality and hyponatremia; I50.32 Chronic diastolic (congestive) heart failure; J44.0 Chronic obstructive pulmonary disease with (acute) lower respiratory infection; I48.92 Unspecified atrial flutter; Z68.1 Body mass index [BMI] 19.9 or less, adult; I48.2 Chronic atrial fibrillation; D53.9 Nutritional anemia, unspecified; E53.8 Deficiency of other specified B group vitamins; K21.9 Gastro-esophageal reflux disease without esophagitis; N40.0 Benign prostatic hyperplasia without lower urinary tract symptoms; Z66 Do not resuscitate; G25.0 Essential tremor; Z86.73 Personal history of transient ischemic attack (TIA), and cerebral infarction without residual deficits; Z87.11 Personal history of peptic ulcer disease; Z90.49 Acquired absence of other specified parts of digestive tract; Z87.891 Personal history of nicotine dependence; Z79.01 Long term (current) use of anticoagulants
CPT/HCPCS: 36415; 71045; 80048; 82040; 82272; 83605; 83880; 85025; 85610; 87040; 87070; 87077; 87186; 87205; 87400; 93005; 94640; 96365; 96367; 96375; J0696; J7060; J7620; J1940; J2930; J7030

== ENCOUNTER → 2018-04-13 | Outpatient (CLI) | payer MEDICARE, OTHER ==
[~2018-04-13] MED LIST changes: +GUAI600T31 PO; +WARF2TAB99 PO
== END | disposition home or self-care (01) ==
LOC: CFH 15:48
PROVIDERS: ATTEND Physician Assistant
DX: S12.110S Anterior displaced Type II dens fracture, sequela (principal); M50.321 Other cervical disc degeneration at C4-C5 level; X58.XXXS Exposure to other specified factors, sequela
CPT/HCPCS: 72125

== ENCOUNTER 2018-06-03 20:41 | Emergency (ER) | payer MEDICARE, OTHER ==
[~2018-06-03] VITALS: Ht 182.9 cm; Wt 44.8 kg
[2018-06-03 21:33] LABS: MICROSCOPIC INDICATED
[2018-06-03 21:50] LABS: INTERNATIONAL NORMALIZED RATIO 4.05 (0.93-1.1)
[2018-06-03 21:52] LABS: ANION GAP 8 mmol/L (5-15); CALCIUM 8.3 mg/dL (8.5-10.1); CHLORIDE 109 mmol/L (98-107); CREATININE 1.72 mg/dL (0.7-1.3)
[2018-06-03 22:28] VITALS: BP 139/89
== END 2018-06-03 22:30 | disposition home or self-care (01) ==
LOC: ED 21:31
DX: R31.0 Gross hematuria (principal); I48.92 Unspecified atrial flutter; K21.9 Gastro-esophageal reflux disease without esophagitis; I48.91 Unspecified atrial fibrillation; N18.3 Chronic kidney disease, stage 3 (moderate); J44.9 Chronic obstructive pulmonary disease, unspecified; Z90.89 Acquired absence of other organs; Z86.73 Personal history of transient ischemic attack (TIA), and cerebral infarction without residual deficits
CPT/HCPCS: 36415; 80048; 81001; 82040; 85610; 99284

== ENCOUNTER 2018-08-20 16:42 | Inpatient (IN) | payer MEDICARE, OTHER ==
[~2018-08-20] VITALS: Ht 182.9 cm; Wt 53.2 kg
[~2018-08-20 16:42] MED LIST changes: +ATOR20TA37 PO; -ATOR20TA9 PO
[2018-08-20] MEDS ORDERED: CHOL500050 PO (17:17)
[2018-08-20] MEDS ORDERED: IBAN150T PO (17:17)
[2018-08-20 17:55] LABS: BASOPHILS # (AUTO) 0.04 x10^3/uL (0-0.1); BASOPHILS % (AUTO) 0 % (0-1); EOSINOPHILS # (AUTO) 0.12 x10^3/uL (0-0.4); EOSINOPHILS % (AUTO) 1 % (1-7); LYMPHOCYTES # (AUTO) 2.83 x10^3/uL (1-3.4); LYMPHOCYTES % (AUTO) 31 % (22-44); MD NO; MEAN CORPUSCULAR HEMOGLOBIN 35.3 pg (27.5-34.5); MEAN CORPUSCULAR HGB CONC 33.4 g/dL (33.2-36.2); MEAN CORPUSCULAR VOLUME 105.7 fL (81-97); MEAN PLATELET VOLUME 8.1 fL (7.4-10.4); MONOCYTES # (AUTO) 0.75 x10^3/uL (0.2-0.8); MONOCYTES % (AUTO) 8 % (2-9); NEUTROPHILS # (AUTO) 5.53 x10^3/uL (1.8-6.8); NEUTROPHILS % (AUTO) 60 % (42-75); PLATELET COUNT 341 x10^3/uL (130-400); RED BLOOD COUNT 3.56 x10^6/uL (4.38-5.82); RED CELL DISTRIBUTION WIDTH 15.9 % (9.4-14.8)
[2018-08-20] MEDS ORDERED: SODIUM CHLORIDE FLUSH 10ML SYR IVF ONE (18:00)
[2018-08-20] MEDS ORDERED: LIDOCAINE-MPF 1%, 5ML INFIL ONE (18:00)
[2018-08-20 18:03] LABS: INTERNATIONAL NORMALIZED RATIO 2.25 (0.93-1.1); PROTHROMBIN TIME 23.1 Seconds (9.6-11.5)
[2018-08-20 18:11] LABS: ALANINE AMINOTRANSFERASE 16 U/L (12-78); ALBUMIN 3.3 g/dL (3.4-5.0); ANION GAP 9 mmol/L (5-15); CALCIUM 8.7 mg/dL (8.5-10.1); CHLORIDE 109 mmol/L (98-107); CREATININE 1.84 mg/dL (0.7-1.3)
[2018-08-20 18:13] LABS: BILIRUBIN,TOTAL 0.4 mg/dL (0.2-1.0)
[2018-08-20 18:14] LABS: ALKALINE PHOSPHATASE 135 U/L (45-117); TOTAL PROTEIN 7.2 g/dL (6.4-8.2)
[2018-08-20] MEDS ORDERED: LIDOCAINE-MPF 1%, 5ML ONE (18:32)
[2018-08-20 19:02] LABS: MICROSCOPIC AUTO
[2018-08-20 19:13] LABS: CULTURE INDICATED? YES
[2018-08-20] MEDS ORDERED: CEFTRIAXONE PMX 1GM/50ML 50 ML IV ONE ×2 (19:30→21:00)
[2018-08-20] MEDS ORDERED: CEFTRIAXONE PMX 1GM/50ML 50 ML ONE (19:41)
[2018-08-20] MEDS ORDERED: SODIUM CHLORIDE FLUSH 10ML SYR IVF PRN (20:00)
[2018-08-20] MEDS ORDERED: hydrALAzine 20 MG/ML, 1ML IVPush PRN (20:30)
[2018-08-20] MEDS ORDERED: PROMETHAZINE 25 MG/ML, 1ML IM PRN (20:30)
[2018-08-20] MEDS ORDERED: ACETAMINOPHEN 325 MG TABLET PO PRN (20:30)
[2018-08-20] MEDS ORDERED: ONDANSETRON ODT 4 MG PO PRN (20:30)
[2018-08-20] MEDS ORDERED: morphine SULFATE 10 MG/ML, 1ML IVPush PRN (20:30)
[2018-08-20] MEDS ORDERED: DOCUSATE 100 MG CAPSULE PO PRN (20:30)
[2018-08-20] MEDS ORDERED: ONDANSETRON 2MG/ML, 2ML IVPush PRN (20:30)
[2018-08-20] MEDS ORDERED: BISACODYL 10 MG SUPP PR PRN (20:30)
[2018-08-20] MEDS ORDERED: GABAPENTIN 300 MG CAPSULE PO PRN (20:30)
[2018-08-20] MEDS ORDERED: OXYcodone IR 5MG TABLET PO PRN (20:30)
[2018-08-20] MEDS ORDERED: LABETALOL 5MG/ML, 20ML IVPush PRN (20:30)
[2018-08-20] MEDS ORDERED: POLYETHYLENE GLYCOL 17 GM PACKET PO PRN (20:30)
[2018-08-20] MEDS ORDERED: TEMPLATE NON-FORMULARY MED. (Fluticasone/Salmeterol** (Advair 250-50 Diskus**) 1 PUFF) INH SCH (21:00)
[2018-08-20] MEDS: BUDESONIDE 0.5 MG/2 ML INHA NPPB SCH (21:00)
[2018-08-20] MEDS ORDERED: WARFARIN 1 MG TABLET PO-COUM ONE (21:00)
[2018-08-20] MEDS: ALBUTEROL SULFATE 2.5 MG/3 ML NPPB SCH (21:00)
[2018-08-20 21:03] LABS: FREE T4 (FREE THYROXINE) 1.05 ng/dL (0.76-1.46); THYROID STIMULATING HORMONE 2.46 mIU/L (0.358-3.740)
[2018-08-20 21:20] VITALS: BP 174/89
[2018-08-20 21:34] LABS: HEMOGLOBIN A1C 5.6 % (4.2-6.3)
[2018-08-20] MEDS: SODIUM CHLORIDE 0.9% 1,000 ML IV SCH (22:43)
[2018-08-20 22:52] VITALS: BP 171/92
[2018-08-20 23:00] VITALS: BP 151/69
[2018-08-21 00:49] VITALS: BP 129/65
[2018-08-21] MEDS: ALBUTEROL SULFATE 2.5 MG/3 ML NPPB SCH ×3 (03:00→14:05)
[2018-08-21 05:25] LABS: BASOPHILS # (AUTO) 0.06 x10^3/uL (0-0.1); BASOPHILS % (AUTO) 1 % (0-1); EOSINOPHILS # (AUTO) 0.16 x10^3/uL (0-0.4); EOSINOPHILS % (AUTO) 2 % (1-7); INTERNATIONAL NORMALIZED RATIO 2.5 (0.93-1.1); LYMPHOCYTES % (AUTO) 23 % (22-44); MD NO; MEAN CORPUSCULAR HEMOGLOBIN 35.9 pg (27.5-34.5); MEAN CORPUSCULAR VOLUME 105.6 fL (81-97); MEAN PLATELET VOLUME 8.7 fL (7.4-10.4); MONOCYTES # (AUTO) 0.93 x10^3/uL (0.2-0.8); MONOCYTES % (AUTO) 11 % (2-9); NEUTROPHILS % (AUTO) 63 % (42-75); PLATELET COUNT 282 x10^3/uL (130-400); PROTHROMBIN TIME 25.6 Seconds (9.6-11.5); RED BLOOD COUNT 3.38 x10^6/uL (4.38-5.82); RED CELL DISTRIBUTION WIDTH 15.8 % (9.4-14.8)
[2018-08-21 05:30] LABS: CALCIUM 8.1 mg/dL (8.5-10.1); CHLORIDE 109 mmol/L (98-107)
[2018-08-21 05:35] LABS: ALANINE AMINOTRANSFERASE 13 U/L (12-78); ALBUMIN 2.9 g/dL (3.4-5.0); ALKALINE PHOSPHATASE 113 U/L (45-117); ANION GAP 10 mmol/L (5-15); BILIRUBIN,TOTAL 0.5 mg/dL (0.2-1.0); CREATININE 1.56 mg/dL (0.7-1.3); TOTAL PROTEIN 6.5 g/dL (6.4-8.2); TRIGLYCERIDES 72 mg/dL (50-200)
[2018-08-21 05:36] LABS: CHOL/HDL RATIO 2.4; CHOLESTEROL, TOTAL 158 mg/dL (140-239); HDL CHOL % 42 % (26-37); HDL CHOLESTEROL (DIRECT) 67 mg/dL (40-60); LDL CHOLESTEROL,CALCULATED 77 mg/dL (54-169); LDL/HDL RATIO 1.1 (0.5-3.0); VLDL CHOLESTEROL 14 mg/dL (0-25)
[2018-08-21 07:05] VITALS: BP 156/79
[2018-08-21] MEDS: BUDESONIDE 0.5 MG/2 ML INHA NPPB SCH (09:00)
[2018-08-21] MEDS ORDERED: TEMPLATE NON-FORMULARY MED. (Warfarin Sodium** 2 MG) PO SCH (09:00)
[2018-08-21] MEDS ORDERED: GADOBUTROL 7.5 MMOL/7.5 ML PFS ONE (09:08)
[2018-08-21] MEDS: METOPROLOL TARTRATE 25 MG TABLET PO SCH ×2 (09:53→18:24)
[2018-08-21] MEDS: CYANOCOBALAMIN 1,000 MCG TABLET PO SCH (09:53)
[2018-08-21] MEDS: OMEPRAZOLE 20 MG CAPSULE.DR PO SCH (09:53)
[2018-08-21] MEDS: TAMSULOSIN 0.4 MG CAP.ER.24H PO SCH (09:53)
[2018-08-21] MEDS: SODIUM CHLORIDE 0.9% 1,000 ML IV SCH (09:53)
[2018-08-21] MEDS ORDERED: WARFARIN 1 MG TABLET PO-COUM ONE ×2 (12:00→18:00)
[2018-08-21 14:02] VITALS: BP 128/69
[2018-08-21] MEDS ORDERED: VANCOMYCIN PER PHARMACY MC PRN (15:30)
[2018-08-21] MEDS ORDERED: PHARMACOKINETIC MONITORING MC PRN (15:30)
[2018-08-21] MEDS ORDERED: VANCOMYCIN PMX 1GM/200ML 200 ML IV ONE (15:30)
[2018-08-21 18:52] VITALS: BP 143/64
[2018-08-21] MEDS ORDERED: CEFTRIAXONE PMX 2GM/50ML 50 ML IV SCH (19:00)
[2018-08-22 00:41] VITALS: BP 134/70
[2018-08-22 05:44] LABS: INTERNATIONAL NORMALIZED RATIO 2.6 (0.93-1.1); PROTHROMBIN TIME 26.6 Seconds (9.6-11.5)
[2018-08-22 05:47] LABS: ALBUMIN 2.8 g/dL (3.4-5.0); ANION GAP 9 mmol/L (5-15); CHLORIDE 108 mmol/L (98-107); CREATININE 1.39 mg/dL (0.7-1.3)
[2018-08-22 05:48] LABS: VANCOMYCIN,RANDOM 12.7 mcg/mL
[2018-08-22 05:50] LABS: BASOPHILS # (AUTO) 0.05 x10^3/uL (0-0.1); BASOPHILS % (AUTO) 1 % (0-1); EOSINOPHILS # (AUTO) 0.18 x10^3/uL (0-0.4); EOSINOPHILS % (AUTO) 3 % (1-7); LYMPHOCYTES # (AUTO) 1.27 x10^3/uL (1-3.4); LYMPHOCYTES % (AUTO) 20 % (22-44); MD NO; MEAN CORPUSCULAR HEMOGLOBIN 35.7 pg (27.5-34.5); MEAN CORPUSCULAR HGB CONC 33.8 g/dL (33.2-36.2); MEAN CORPUSCULAR VOLUME 105.5 fL (81-97); MEAN PLATELET VOLUME 8.9 fL (7.4-10.4); MONOCYTES # (AUTO) 0.74 x10^3/uL (0.2-0.8); MONOCYTES % (AUTO) 12 % (2-9); NEUTROPHILS # (AUTO) 4.02 x10^3/uL (1.8-6.8); NEUTROPHILS % (AUTO) 64 % (42-75); PLATELET COUNT 270 x10^3/uL (130-400); RED BLOOD COUNT 3.31 x10^6/uL (4.38-5.82); RED CELL DISTRIBUTION WIDTH 15.9 % (9.4-14.8)
[2018-08-22 06:04] VITALS: BP 131/76
[2018-08-22] MEDS: METOPROLOL TARTRATE 25 MG TABLET PO SCH ×2 (06:04→18:00)
[2018-08-22] MEDS: ALBUTEROL SULFATE 2.5 MG/3 ML NPPB SCH ×4 (08:20→19:25)
[2018-08-22] MEDS: BUDESONIDE 0.5 MG/2 ML INHA NPPB SCH ×3 (08:20→20:49)
[2018-08-22] MEDS: CYANOCOBALAMIN 1,000 MCG TABLET PO SCH (08:22)
[2018-08-22] MEDS: TAMSULOSIN 0.4 MG CAP.ER.24H PO SCH (08:22)
[2018-08-22] MEDS: OMEPRAZOLE 20 MG CAPSULE.DR PO SCH (08:22)
[2018-08-22] MEDS ORDERED: VANCOMYCIN PMX 1GM/200ML 200 ML IV SCH (10:00)
[2018-08-22 13:50] LABS: MICROSCOPIC AUTO
[2018-08-22 14:21] VITALS: BP 100/55
[2018-08-22 14:28] LABS: CLOSTRIDIUM DIFFICILE ANTIGEN NEGATIVE; CLOSTRIDIUM DIFFICILE TOXIN NEGATIVE (Negative)
[2018-08-22] MEDS ORDERED: WARFARIN 3 MG TABLET PO-COUM ONE (18:00)
[2018-08-22 18:05] VITALS: BP 102/66
[2018-08-22 20:12] VITALS: BP 91/40
[2018-08-22] MEDS: LOPERAMIDE 2 MG CAPSULE PO PRN (20:14)
[2018-08-23 02:57] VITALS: BP 124/67
[2018-08-23 05:43] LABS: BASOPHILS # (AUTO) 0.03 x10^3/uL (0-0.1); BASOPHILS % (AUTO) 1 % (0-1); EOSINOPHILS # (AUTO) 0.13 x10^3/uL (0-0.4); EOSINOPHILS % (AUTO) 3 % (1-7); LYMPHOCYTES % (AUTO) 28 % (22-44); MD NO; MEAN CORPUSCULAR HEMOGLOBIN 35.2 pg (27.5-34.5); MEAN CORPUSCULAR HGB CONC 33.1 g/dL (33.2-36.2); MEAN CORPUSCULAR VOLUME 106.1 fL (81-97); MEAN PLATELET VOLUME 8.8 fL (7.4-10.4); MONOCYTES # (AUTO) 0.75 x10^3/uL (0.2-0.8); MONOCYTES % (AUTO) 14 % (2-9); NEUTROPHILS # (AUTO) 2.93 x10^3/uL (1.8-6.8); NEUTROPHILS % (AUTO) 55 % (42-75); PLATELET COUNT 255 x10^3/uL (130-400); RED BLOOD COUNT 3.19 x10^6/uL (4.38-5.82); RED CELL DISTRIBUTION WIDTH 15.6 % (9.4-14.8)
[2018-08-23 05:53] LABS: INTERNATIONAL NORMALIZED RATIO 2.49 (0.93-1.1); PROTHROMBIN TIME 25.5 Seconds (9.6-11.5)
[2018-08-23 05:58] LABS: CHLORIDE 112 mmol/L (98-107)
[2018-08-23 06:06] LABS: ALANINE AMINOTRANSFERASE 13 U/L (12-78); ALBUMIN 2.8 g/dL (3.4-5.0); ALKALINE PHOSPHATASE 111 U/L (45-117); ANION GAP 8 mmol/L (5-15); BILIRUBIN,TOTAL 0.5 mg/dL (0.2-1.0); CALCIUM 7.9 mg/dL (8.5-10.1); CREATININE 1.33 mg/dL (0.7-1.3); TOTAL PROTEIN 6.2 g/dL (6.4-8.2)
[2018-08-23 06:29] VITALS: BP 124/70
[2018-08-23] MEDS: METOPROLOL TARTRATE 25 MG TABLET PO SCH ×2 (06:36→18:43)
[2018-08-23 06:58] VITALS: BP 114/64
[2018-08-23] MEDS: ALBUTEROL SULFATE 2.5 MG/3 ML NPPB SCH (07:00)
[2018-08-23] MEDS: BUDESONIDE 0.5 MG/2 ML INHA NPPB SCH ×2 (07:09→21:00)
[2018-08-23] MEDS ORDERED: CEFAZOLIN 2,000 MG in SODIUM CHLORIDE 0.9% 50 ML IV SCH (09:00)
[2018-08-23] MEDS: OMEPRAZOLE 20 MG CAPSULE.DR PO SCH (09:12)
[2018-08-23] MEDS: TAMSULOSIN 0.4 MG CAP.ER.24H PO SCH (09:12)
[2018-08-23] MEDS: CYANOCOBALAMIN 1,000 MCG TABLET PO SCH (09:12)
[2018-08-23] MEDS: LOPERAMIDE 2 MG CAPSULE PO PRN (09:24)
[2018-08-23] MEDS ORDERED: ALBUTEROL SULFATE 2.5 MG/3 ML NPPB PRN (10:00)
[2018-08-23 12:09] VITALS: BP 118/82
[2018-08-23] MEDS: CEFAZOLIN PMX 2GM/50ML 50 ML IVPB SCH (16:50)
[2018-08-23] MEDS ORDERED: WARFARIN 3 MG TABLET PO-COUM ONE (18:00)
[2018-08-23 19:35] VITALS: BP 112/72
[2018-08-24] MEDS: CEFAZOLIN PMX 2GM/50ML 50 ML IVPB SCH ×3 (00:23→16:07)
[2018-08-24 01:54] VITALS: BP 131/68
[2018-08-24 05:23] LABS: BASOPHILS # (AUTO) 0.03 x10^3/uL (0-0.1); BASOPHILS % (AUTO) 1 % (0-1); EOSINOPHILS # (AUTO) 0.26 x10^3/uL (0-0.4); EOSINOPHILS % (AUTO) 4 % (1-7); LYMPHOCYTES # (AUTO) 1.64 x10^3/uL (1-3.4); LYMPHOCYTES % (AUTO) 27 % (22-44); MD NO; MEAN CORPUSCULAR HGB CONC 34.2 g/dL (33.2-36.2); MEAN CORPUSCULAR VOLUME 105.3 fL (81-97); MEAN PLATELET VOLUME 8.4 fL (7.4-10.4); MONOCYTES # (AUTO) 0.94 x10^3/uL (0.2-0.8); MONOCYTES % (AUTO) 16 % (2-9); NEUTROPHILS # (AUTO) 3.16 x10^3/uL (1.8-6.8); NEUTROPHILS % (AUTO) 52 % (42-75); PLATELET COUNT 265 x10^3/uL (130-400); RED BLOOD COUNT 3.17 x10^6/uL (4.38-5.82); RED CELL DISTRIBUTION WIDTH 15.5 % (9.4-14.8)
[2018-08-24 05:33] LABS: INTERNATIONAL NORMALIZED RATIO 2.12 (0.93-1.1); PROTHROMBIN TIME 21.8 Seconds (9.6-11.5)
[2018-08-24 05:34] LABS: ALBUMIN 2.7 g/dL (3.4-5.0); ANION GAP 6 mmol/L (5-15); CALCIUM 8.1 mg/dL (8.5-10.1); CHLORIDE 112 mmol/L (98-107); CREATININE 1.49 mg/dL (0.7-1.3)
[2018-08-24] MEDS: METOPROLOL TARTRATE 25 MG TABLET PO SCH ×2 (06:12→17:47)
[2018-08-24] MEDS: BUDESONIDE 0.5 MG/2 ML INHA NPPB SCH ×2 (06:36→20:10)
[2018-08-24 07:28] VITALS: BP 123/73
[2018-08-24] MEDS: CYANOCOBALAMIN 1,000 MCG TABLET PO SCH (08:56)
[2018-08-24] MEDS: OMEPRAZOLE 20 MG CAPSULE.DR PO SCH (08:56)
[2018-08-24] MEDS: TAMSULOSIN 0.4 MG CAP.ER.24H PO SCH (08:56)
[2018-08-24] MEDS ORDERED: ERTAPENEM 1 GM in SODIUM CHLORIDE 0.9% 50 ML IV SCH (10:30)
[2018-08-24 11:49] LABS: HCT (SEDRATE) 36.8 % (39.2-51.8)
[2018-08-24 12:04] VITALS: BP 123/65
[2018-08-24] MEDS ORDERED: CEFAZOLIN 2,000 MG in SODIUM CHLORIDE 0.9% 50 ML IV SCH (12:30)
[2018-08-24] MEDS ORDERED: MAGNESIUM SULFATE 1 GM in SODIUM CHLORIDE 0.9% 50 ML IV ONE (12:30)
[2018-08-24] MEDS: LOPERAMIDE 2 MG CAPSULE PO PRN (14:38)
[2018-08-24] MEDS ORDERED: ANCEF IV (15:13)
[2018-08-24] MEDS ORDERED: WARFARIN 2 MG TABLET PO-COUM ONE (18:00)
[2018-08-24 19:55] VITALS: BP 132/62
[2018-08-25] MEDS: LOPERAMIDE 2 MG CAPSULE PO PRN (00:14)
[2018-08-25] MEDS: CEFAZOLIN PMX 2GM/50ML 50 ML IVPB SCH ×2 (00:14→08:09)
[2018-08-25 02:01] VITALS: BP 152/80
[2018-08-25 04:37] LABS: BASOPHILS # (AUTO) 0.03 x10^3/uL (0-0.1); BASOPHILS % (AUTO) 1 % (0-1); EOSINOPHILS # (AUTO) 0.22 x10^3/uL (0-0.4); EOSINOPHILS % (AUTO) 4 % (1-7); LYMPHOCYTES # (AUTO) 1.73 x10^3/uL (1-3.4); LYMPHOCYTES % (AUTO) 28 % (22-44); MD NO; MEAN CORPUSCULAR HEMOGLOBIN 35.7 pg (27.5-34.5); MEAN CORPUSCULAR HGB CONC 33.8 g/dL (33.2-36.2); MEAN CORPUSCULAR VOLUME 105.6 fL (81-97); MEAN PLATELET VOLUME 8.7 fL (7.4-10.4); MONOCYTES # (AUTO) 0.81 x10^3/uL (0.2-0.8); MONOCYTES % (AUTO) 13 % (2-9); NEUTROPHILS # (AUTO) 3.31 x10^3/uL (1.8-6.8); NEUTROPHILS % (AUTO) 54 % (42-75); PLATELET COUNT 267 x10^3/uL (130-400); RED BLOOD COUNT 3.18 x10^6/uL (4.38-5.82); RED CELL DISTRIBUTION WIDTH 15.4 % (9.4-14.8)
[2018-08-25 04:49] LABS: INTERNATIONAL NORMALIZED RATIO 2.06 (0.93-1.1); PROTHROMBIN TIME 21.2 Seconds (9.6-11.5)
[2018-08-25 04:50] LABS: ALBUMIN 2.8 g/dL (3.4-5.0); ANION GAP 7 mmol/L (5-15); CALCIUM 8.2 mg/dL (8.5-10.1); CHLORIDE 109 mmol/L (98-107); CREATININE 1.39 mg/dL (0.7-1.3)
[2018-08-25 05:45] VITALS: BP 116/72
[2018-08-25] MEDS: METOPROLOL TARTRATE 25 MG TABLET PO SCH (05:47)
[2018-08-25 07:03] VITALS: BP 128/82
[2018-08-25] MEDS: BUDESONIDE 0.5 MG/2 ML INHA NPPB SCH (07:32)
[2018-08-25] MEDS: OMEPRAZOLE 20 MG CAPSULE.DR PO SCH (08:09)
[2018-08-25] MEDS: CYANOCOBALAMIN 1,000 MCG TABLET PO SCH (08:09)
[2018-08-25] MEDS: TAMSULOSIN 0.4 MG CAP.ER.24H PO SCH (08:09)
[2018-09-09] MEDS ORDERED: IBANDRONATE SODIUM HOMEMEDPO SCH (20:30)
== END 2018-08-25 10:42 | DRG 500 ==
LOC: ED 18:36 → 4EST 19:54 → 3NE 21:25 → 4NOR 08-21 18:38
PROVIDERS: ADMIT Internal Medicine; ATTEND Internal Medicine
PROC: 0JQ00ZZ Repair Scalp Subcutaneous Tissue and Fascia, Open Approach (ICD-10-PCS; 2018-08-20)
PROC: 02HV33Z Insertion of Infusion Device into Superior Vena Cava, Percutaneous Approach (ICD-10-PCS; principal; 2018-08-24)
PROC: B5181ZA Fluoroscopy of Superior Vena Cava using Low Osmolar Contrast, Guidance (ICD-10-PCS; 2018-08-24)
PROC: B548ZZA Ultrasonography of Superior Vena Cava, Guidance (ICD-10-PCS; 2018-08-24)
DX: M48.02 Spinal stenosis, cervical region (principal); N17.0 Acute kidney failure with tubular necrosis; N30.00 Acute cystitis without hematuria; M84.48XA Pathological fracture, other site, initial encounter for fracture; D68.69 Other thrombophilia; E44.0 Moderate protein-calorie malnutrition; I13.0 Hypertensive heart and chronic kidney disease with heart failure and stage 1 through stage 4 chronic kidney disease, or unspecified chronic kidney disease; I50.32 Chronic diastolic (congestive) heart failure; J96.10 Chronic respiratory failure, unspecified whether with hypoxia or hypercapnia; Z68.1 Body mass index [BMI] 19.9 or less, adult; Z88.8 Allergy status to other drugs, medicaments and biological substances; D53.9 Nutritional anemia, unspecified; G25.0 Essential tremor; I48.2 Chronic atrial fibrillation; J44.9 Chronic obstructive pulmonary disease, unspecified; K21.9 Gastro-esophageal reflux disease without esophagitis; N18.3 Chronic kidney disease, stage 3 (moderate); N40.0 Benign prostatic hyperplasia without lower urinary tract symptoms; W18.30XA Fall on same level, unspecified, initial encounter; S01.01XA Laceration without foreign body of scalp, initial encounter; Y92.009 Unspecified place in unspecified non-institutional (private) residence as the place of occurrence of the external cause; Z79.01 Long term (current) use of anticoagulants; Z86.73 Personal history of transient ischemic attack (TIA), and cerebral infarction without residual deficits; Z87.891 Personal history of nicotine dependence; Z87.11 Personal history of peptic ulcer disease; Z91.81 History of falling; B95.61 Methicillin susceptible Staphylococcus aureus infection as the cause of diseases classified elsewhere; R53.81 Other malaise; Z90.49 Acquired absence of other specified parts of digestive tract; B95.8 Unspecified staphylococcus as the cause of diseases classified elsewhere
CPT/HCPCS: 12032; 36415; 36569; 70450; 70553; 71045; 72125; 72142; 76937; 77001; 80048; 80053; 80061; 80202; 81001; 82040; 82607; 83036; 83735; 84100; 84439; 84443; 85025; 85610; 85651; 86140; 87040; 87077; 87086; 87186; 87324; 90656; 93005; 94640; 96365; A9585; G0378; J0690; J0696; J1335; J3370; J3475; J7613; J7626; C1751; J0360; J7030

== ENCOUNTER 2018-10-13 18:12 | Inpatient (IN) | payer MEDICARE, OTHER ==
[~2018-10-13] VITALS: Ht 182.9 cm; Wt 47.4 kg
[~2018-10-13 18:12] MED LIST changes: +ANCEF IV; +CHOL500050 PO; +IBAN150T PO
--- NOTE | 2018-10-13 18:56 | NUR ---
ASSUMED CARE OF PATIENT, BEDSIDE REPORT FROM SILVANA GLOVER
[2018-10-13] MEDS ORDERED: SODIUM CHLORIDE 0.9% 1,000ML IVBOLUS ONE (19:00)
[2018-10-13] MEDS ORDERED: SODIUM CHLORIDE FLUSH 10ML SYR IVF ONE (19:00)
[2018-10-13 19:03] LABS: BASOPHILS # (AUTO) 0.03 x10^3/uL (0-0.1); BASOPHILS % (AUTO) 0 % (0-1); EOSINOPHILS % (AUTO) 0 % (1-7); LYMPHOCYTES # (AUTO) 0.83 x10^3/uL (1-3.4); LYMPHOCYTES % (AUTO) 10 % (22-44); MD NO; MEAN CORPUSCULAR HEMOGLOBIN 35.2 pg (27.5-34.5); MEAN CORPUSCULAR HGB CONC 33.7 g/dL (33.2-36.2); MEAN CORPUSCULAR VOLUME 104.4 fL (81-97); MEAN PLATELET VOLUME 8.2 fL (7.4-10.4); MONOCYTES # (AUTO) 0.86 x10^3/uL (0.2-0.8); MONOCYTES % (AUTO) 11 % (2-9); NEUTROPHILS # (AUTO) 6.41 x10^3/uL (1.8-6.8); NEUTROPHILS % (AUTO) 79 % (42-75); PLATELET COUNT 276 x10^3/uL (130-400); RED BLOOD COUNT 3.35 x10^6/uL (4.38-5.82); RED CELL DISTRIBUTION WIDTH 13.9 % (9.4-14.8)
[2018-10-13 19:11] LABS: ALANINE AMINOTRANSFERASE 12 U/L (12-78); ALBUMIN 2.7 g/dL (3.4-5.0); ANION GAP 9 mmol/L (5-15); CALCIUM 8.5 mg/dL (8.5-10.1); CHLORIDE 109 mmol/L (98-107)
[2018-10-13 19:14] LABS: ALKALINE PHOSPHATASE 96 U/L (45-117); BILIRUBIN,TOTAL 1.6 mg/dL (0.2-1.0); TOTAL PROTEIN 7.3 g/dL (6.4-8.2); TROPONIN I < 0.015 ng/mL (0.000-0.045)
[2018-10-13] MEDS ORDERED: CEFTRIAXONE PMX 1GM/50ML 50 ML IVPB ONE (19:30)
[2018-10-13] MEDS ORDERED: AZITHROMYCIN 500 MG in SODIUM CHLORIDE 0.9% 250 ML IV ONE (19:30)
[2018-10-13] MEDS ORDERED: CEFTRIAXONE PMX 1GM/50ML 50 ML ONE (19:38)
--- NOTE | 2018-10-13 19:42 | NUR ---
BOTH BLOOD CULTURES DRAWN BEFORE ABX GIVEN
[2018-10-13] MEDS ORDERED: ACETAMINOPHEN 325 MG TABLET ONE (19:45)
[2018-10-13] MEDS ORDERED: DILTIAZEM 5 MG/ML, 5ML ONE (19:45)
[2018-10-13 19:48] LABS: INTERNATIONAL NORMALIZED RATIO 3.09 (0.93-1.1); PROTHROMBIN TIME 31.4 Seconds (9.6-11.5)
[2018-10-13] MEDS ORDERED: DILTIAZEM 5 MG/ML, 5ML IVPush ONE (20:00)
[2018-10-13] MEDS ORDERED: ACETAMINOPHEN 325 MG TABLET PO ONE (20:00)
--- NOTE | 2018-10-13 20:51 | NUR ---
PT WATCHING TV. NO ACUTE DISTRESS NOTED. CALL LIGHT IN PLACE. WILL CONTINUE TO MONITOR.
--- NOTE | 2018-10-13 20:58 | NUR ---
REPORT CALLED INTO MEDICAL
[2018-10-13] MEDS ORDERED: SODIUM CHLORIDE FLUSH 10ML SYR IVF PRN (21:00)
[2018-10-13] MEDS ORDERED: IBANDRONATE SODIUM 150 MG PO SCH (21:30)
[2018-10-13 21:31] VITALS: BP 110/64
[2018-10-13] MEDS ORDERED: GUAIFENESIN/DM 200-20MG, 10ML UDC PO PRN (22:00)
[2018-10-13] MEDS ORDERED: ACETAMINOPHEN 325 MG TABLET PO PRN (22:00)
[2018-10-13] MEDS ORDERED: POLYETHYLENE GLYCOL 17 GM PACKET PO PRN (22:00)
[2018-10-13] MEDS ORDERED: BISACODYL 10 MG SUPP PR PRN (22:00)
[2018-10-13] MEDS ORDERED: ONDANSETRON ODT 4 MG PO PRN (22:00)
[2018-10-13] MEDS: SODIUM CHLORIDE 0.9% 1,000 ML IV SCH (22:38)
[2018-10-13] MEDS: DOXYCYCLINE 100 MG in DEXTROSE 5% 250 ML IV SCH (23:53)
[2018-10-14] MEDS: ALBUTEROL SULFATE 2.5 MG/3 ML NPPB SCH ×3 (00:14→10:00)
[2018-10-14 02:21] VITALS: BP 138/62
[2018-10-14 04:56] LABS: MICROSCOPIC AUTO
[2018-10-14 05:20] LABS: CULTURE INDICATED? NO
[2018-10-14 05:52] LABS: BASOPHILS # (AUTO) 0.02 x10^3/uL (0-0.1); BASOPHILS % (AUTO) 0 % (0-1); EOSINOPHILS # (AUTO) 0.01 x10^3/uL (0-0.4); EOSINOPHILS % (AUTO) 0 % (1-7); LYMPHOCYTES # (AUTO) 1.37 x10^3/uL (1-3.4); LYMPHOCYTES % (AUTO) 18 % (22-44); MD NO; MEAN CORPUSCULAR HEMOGLOBIN 35.4 pg (27.5-34.5); MEAN CORPUSCULAR HGB CONC 33.9 g/dL (33.2-36.2); MEAN CORPUSCULAR VOLUME 104.4 fL (81-97); MEAN PLATELET VOLUME 8.4 fL (7.4-10.4); MONOCYTES # (AUTO) 0.82 x10^3/uL (0.2-0.8); MONOCYTES % (AUTO) 11 % (2-9); NEUTROPHILS # (AUTO) 5.24 x10^3/uL (1.8-6.8); NEUTROPHILS % (AUTO) 70 % (42-75); PLATELET COUNT 258 x10^3/uL (130-400); RED BLOOD COUNT 3.01 x10^6/uL (4.38-5.82); RED CELL DISTRIBUTION WIDTH 14.2 % (9.4-14.8)
[2018-10-14 05:58] LABS: INTERNATIONAL NORMALIZED RATIO 4.19 (0.93-1.1)
[2018-10-14 06:03] LABS: CHLORIDE 112 mmol/L (98-107)
[2018-10-14 06:10] LABS: ALANINE AMINOTRANSFERASE 12 U/L (12-78); ALBUMIN 2.4 g/dL (3.4-5.0); ALKALINE PHOSPHATASE 87 U/L (45-117); ANION GAP 11 mmol/L (5-15); BILIRUBIN,TOTAL 1.3 mg/dL (0.2-1.0); CALCIUM 7.9 mg/dL (8.5-10.1); CREATININE 1.47 mg/dL (0.7-1.3); TOTAL PROTEIN 6.5 g/dL (6.4-8.2)
[2018-10-14 06:59] VITALS: BP 137/74
[2018-10-14] MEDS: SENNA/DOCUSATE TABLET PO SCH (08:39)
[2018-10-14] MEDS: OMEPRAZOLE 20 MG CAPSULE.DR PO SCH (08:39)
[2018-10-14] MEDS: CYANOCOBALAMIN 1,000 MCG TABLET PO SCH (08:39)
[2018-10-14] MEDS: TAMSULOSIN 0.4 MG CAP.ER.24H PO SCH (08:39)
[2018-10-14] MEDS ORDERED: METOPROLOL TARTRATE 50 MG TABLET PO SCH (09:00)
[2018-10-14] MEDS: BUDESONIDE 0.5 MG/2 ML INHA NPPB SCH ×2 (09:00→21:00)
[2018-10-14] MEDS ORDERED: ERGOCALCIFEROL 50,000 UNIT CAPSULE PO SCH (09:00)
[2018-10-14] MEDS: SODIUM CHLORIDE 0.9% 1,000 ML IV SCH (10:32)
[2018-10-14] MEDS: DOXYCYCLINE 100 MG in DEXTROSE 5% 250 ML IV SCH ×2 (10:33→23:16)
[2018-10-14] MEDS ORDERED: ALBUTEROL SULFATE 2.5 MG/3 ML NPPB PRN (11:30)
[2018-10-14 12:33] VITALS: BP 131/71
[2018-10-14] MEDS ORDERED: WARFARIN 2 MG TABLET PO-COUM SCH (18:00)
[2018-10-14] MEDS: METOPROLOL TARTRATE 50 MG TABLET PO SCH (20:50)
[2018-10-14] MEDS: CEFTRIAXONE PMX 1GM/50ML 50 ML IV SCH (20:50)
[2018-10-14 21:50] VITALS: BP 134/73
[2018-10-15 01:35] VITALS: BP 94/52
[2018-10-15] MEDS: SODIUM CHLORIDE 0.9% 1,000 ML IV SCH ×2 (03:26→18:13)
[2018-10-15 03:30] VITALS: BP 112/60
[2018-10-15 07:38] VITALS: BP 99/55
[2018-10-15 08:03] LABS: BASOPHILS # (AUTO) 0.02 x10^3/uL (0-0.1); BASOPHILS % (AUTO) 0 % (0-1); EOSINOPHILS # (AUTO) 0.03 x10^3/uL (0-0.4); EOSINOPHILS % (AUTO) 1 % (1-7); LYMPHOCYTES # (AUTO) 1.06 x10^3/uL (1-3.4); LYMPHOCYTES % (AUTO) 15 % (22-44); MD NO; MEAN CORPUSCULAR HEMOGLOBIN 34.4 pg (27.5-34.5); MEAN CORPUSCULAR HGB CONC 32.8 g/dL (33.2-36.2); MEAN CORPUSCULAR VOLUME 104.9 fL (81-97); MEAN PLATELET VOLUME 7.8 fL (7.4-10.4); MONOCYTES % (AUTO) 13 % (2-9); NEUTROPHILS # (AUTO) 5.06 x10^3/uL (1.8-6.8); NEUTROPHILS % (AUTO) 72 % (42-75); PLATELET COUNT 254 x10^3/uL (130-400); RED BLOOD COUNT 2.88 x10^6/uL (4.38-5.82); RED CELL DISTRIBUTION WIDTH 13.9 % (9.4-14.8)
[2018-10-15 08:10] LABS: ALBUMIN 2.2 g/dL (3.4-5.0); ANION GAP 7 mmol/L (5-15); CALCIUM 8.1 mg/dL (8.5-10.1); CHLORIDE 114 mmol/L (98-107); CREATININE 1.32 mg/dL (0.7-1.3)
[2018-10-15 08:12] LABS: INTERNATIONAL NORMALIZED RATIO 3.88 (0.93-1.1)
[2018-10-15] MEDS: SENNA/DOCUSATE TABLET PO SCH (09:00)
[2018-10-15] MEDS: DOXYCYCLINE 100 MG in DEXTROSE 5% 250 ML IV SCH ×2 (12:15→23:09)
[2018-10-15] MEDS: METOPROLOL TARTRATE 50 MG TABLET PO SCH ×2 (12:16→20:41)
[2018-10-15] MEDS: CYANOCOBALAMIN 1,000 MCG TABLET PO SCH (12:16)
[2018-10-15] MEDS: OMEPRAZOLE 20 MG CAPSULE.DR PO SCH (12:16)
[2018-10-15] MEDS: TAMSULOSIN 0.4 MG CAP.ER.24H PO SCH (12:16)
[2018-10-15] MEDS ORDERED: MAGNESIUM SULFATE PMX 2GM/50ML 50 ML IV ONE (12:30)
[2018-10-15 15:51] VITALS: BP 124/75
[2018-10-15] MEDS: NEUTRA PHOS K 250 MG TABLET PO SCH ×3 (16:01→23:08)
[2018-10-15 16:16] LABS: CLOSTRIDIUM DIFFICILE ANTIGEN NEGATIVE; CLOSTRIDIUM DIFFICILE TOXIN NEGATIVE (Negative)
[2018-10-15] MEDS ORDERED: WARFARIN 1 MG TABLET PO-COUM ONE (18:00)
[2018-10-15] MEDS ORDERED: WARFARIN 2 MG TABLET PO-COUM ONE (18:06)
[2018-10-15 19:00] VITALS: BP 117/68
[2018-10-15] MEDS: BUDESONIDE 0.5 MG/2 ML INHA NPPB SCH ×2 (19:30→21:00)
[2018-10-15] MEDS ORDERED: METOPROLOL TARTRATE 25 MG TABLET ONE (20:38)
[2018-10-15] MEDS: CEFTRIAXONE PMX 1GM/50ML 50 ML IV SCH (20:41)
[2018-10-16 01:00] VITALS: BP 106/52
[2018-10-16 05:11] LABS: INTERNATIONAL NORMALIZED RATIO 3.93 (0.93-1.1); PROTHROMBIN TIME 39.5 Seconds (9.6-11.5)
[2018-10-16 05:14] LABS: ALBUMIN 2.1 g/dL (3.4-5.0); ANION GAP 9 mmol/L (5-15); CALCIUM 7.6 mg/dL (8.5-10.1); CHLORIDE 113 mmol/L (98-107); CREATININE 1.28 mg/dL (0.7-1.3)
[2018-10-16 05:20] LABS: BASOPHILS # (AUTO) 0.03 x10^3/uL (0-0.1); BASOPHILS % (AUTO) 0 % (0-1); EOSINOPHILS # (AUTO) 0.02 x10^3/uL (0-0.4); EOSINOPHILS % (AUTO) 0 % (1-7); LYMPHOCYTES # (AUTO) 1.26 x10^3/uL (1-3.4); LYMPHOCYTES % (AUTO) 15 % (22-44); MD NO; MEAN CORPUSCULAR HEMOGLOBIN 34.6 pg (27.5-34.5); MEAN CORPUSCULAR HGB CONC 33.3 g/dL (33.2-36.2); MEAN PLATELET VOLUME 8.7 fL (7.4-10.4); MONOCYTES # (AUTO) 1.07 x10^3/uL (0.2-0.8); MONOCYTES % (AUTO) 13 % (2-9); NEUTROPHILS # (AUTO) 5.99 x10^3/uL (1.8-6.8); NEUTROPHILS % (AUTO) 72 % (42-75); PLATELET COUNT 254 x10^3/uL (130-400); RED BLOOD COUNT 2.85 x10^6/uL (4.38-5.82); RED CELL DISTRIBUTION WIDTH 13.6 % (9.4-14.8)
[2018-10-16] MEDS: BUDESONIDE 0.5 MG/2 ML INHA NPPB SCH (06:15)
[2018-10-16 07:55] VITALS: BP 107/65
[2018-10-16] MEDS: SENNA/DOCUSATE TABLET PO SCH (09:00)
[2018-10-16] MEDS: DOXYCYCLINE 100 MG in DEXTROSE 5% 250 ML IV SCH (11:40)
[2018-10-16] MEDS: CYANOCOBALAMIN 1,000 MCG TABLET PO SCH (11:41)
[2018-10-16] MEDS: TAMSULOSIN 0.4 MG CAP.ER.24H PO SCH (11:41)
[2018-10-16] MEDS: OMEPRAZOLE 20 MG CAPSULE.DR PO SCH (11:41)
[2018-10-16] MEDS: METOPROLOL TARTRATE 50 MG TABLET PO SCH (11:41)
[2018-10-16 13:26] VITALS: BP 125/67
[2018-10-16] MEDS: SODIUM CHLORIDE 0.9% 1,000 ML IV SCH (14:00)
[2018-10-16] MEDS ORDERED: METO50TA82 PO (14:33)
[2018-10-16] MEDS ORDERED: CEFD300C37 PO (14:33)
[2018-10-16] MEDS ORDERED: DOXY100T BC (14:33)
[2018-10-16] MEDS ORDERED: HOLD MEDICATION WARFARIN MC PRN (16:30)
[2018-10-16] MEDS ORDERED: DOXYCYCLINE 100MG TABLET PO SCH (21:00)
== END 2018-10-16 16:23 | disposition home health service (06) | DRG 871 ==
LOC: ED 18:56 → EDIP 20:32 → 3NE 21:10
PROVIDERS: ADMIT Internal Medicine; ATTEND Internal Medicine
DX: A41.9 Sepsis, unspecified organism (principal); J18.1 Lobar pneumonia, unspecified organism; J44.0 Chronic obstructive pulmonary disease with (acute) lower respiratory infection; I13.0 Hypertensive heart and chronic kidney disease with heart failure and stage 1 through stage 4 chronic kidney disease, or unspecified chronic kidney disease; D68.69 Other thrombophilia; E44.0 Moderate protein-calorie malnutrition; Z68.1 Body mass index [BMI] 19.9 or less, adult; I50.32 Chronic diastolic (congestive) heart failure; J96.10 Chronic respiratory failure, unspecified whether with hypoxia or hypercapnia; N17.9 Acute kidney failure, unspecified; D53.9 Nutritional anemia, unspecified; G25.0 Essential tremor; I48.2 Chronic atrial fibrillation; K21.9 Gastro-esophageal reflux disease without esophagitis; M81.0 Age-related osteoporosis without current pathological fracture; N18.3 Chronic kidney disease, stage 3 (moderate); N40.0 Benign prostatic hyperplasia without lower urinary tract symptoms; R62.7 Adult failure to thrive; Z66 Do not resuscitate; Z79.01 Long term (current) use of anticoagulants; Z79.899 Other long term (current) drug therapy; Z86.73 Personal history of transient ischemic attack (TIA), and cerebral infarction without residual deficits; Z87.11 Personal history of peptic ulcer disease; Z87.891 Personal history of nicotine dependence; Z99.81 Dependence on supplemental oxygen; Z80.9 Family history of malignant neoplasm, unspecified
CPT/HCPCS: 36415; 71045; 80048; 80053; 81001; 82040; 82607; 83605; 83735; 84100; 84145; 84484; 85025; 85610; 85730; 87040; 87070; 87205; 87324; 93005; 96365; 96375; G0378; J0456; J0696; J7060; J3475; J7030; J7050

== ENCOUNTER 2018-11-18 09:47 | Emergency (ER) | payer MEDICARE, OTHER ==
[~2018-11-18] VITALS: Ht 182.9 cm; Wt 54.0 kg
[~2018-11-18 09:47] MED LIST changes: +DOXY100T BC; -IBAN150T PO; +IBAN150T15 PO; -VANC250C2 PO; +VANC250C3 PO
[2018-11-18 10:12] VITALS: BP 147/81
[2018-11-18 10:23] LABS: BASOPHILS # (AUTO) 0.06 x10^3/uL (0-0.1); BASOPHILS % (AUTO) 1 % (0-1); EOSINOPHILS # (AUTO) 0.04 x10^3/uL (0-0.4); EOSINOPHILS % (AUTO) 0 % (1-7); LYMPHOCYTES # (AUTO) 1.44 x10^3/uL (1-3.4); LYMPHOCYTES % (AUTO) 16 % (22-44); MD NO; MEAN CORPUSCULAR HEMOGLOBIN 33.8 pg (27.5-34.5); MEAN CORPUSCULAR HGB CONC 33.1 g/dL (33.2-36.2); MEAN CORPUSCULAR VOLUME 102.3 fL (81-97); MEAN PLATELET VOLUME 8.2 fL (7.4-10.4); MONOCYTES # (AUTO) 0.84 x10^3/uL (0.2-0.8); MONOCYTES % (AUTO) 9 % (2-9); NEUTROPHILS # (AUTO) 6.69 x10^3/uL (1.8-6.8); NEUTROPHILS % (AUTO) 74 % (42-75); PLATELET COUNT 268 x10^3/uL (130-400); RED BLOOD COUNT 3.37 x10^6/uL (4.38-5.82); RED CELL DISTRIBUTION WIDTH 14.9 % (9.4-14.8)
[2018-11-18 10:33] LABS: INTERNATIONAL NORMALIZED RATIO 3.41 (0.93-1.1); PROTHROMBIN TIME 34.2 Seconds (9.6-11.5)
[2018-11-18 10:36] LABS: ALANINE AMINOTRANSFERASE 12 U/L (12-78); ALBUMIN 3.2 g/dL (3.4-5.0); ANION GAP 8 mmol/L (5-15); CALCIUM 8.2 mg/dL (8.5-10.1); CHLORIDE 107 mmol/L (98-107); CREATININE 1.58 mg/dL (0.7-1.3)
[2018-11-18 10:38] LABS: ALKALINE PHOSPHATASE 119 U/L (45-117); BILIRUBIN,TOTAL 0.7 mg/dL (0.2-1.0); TOTAL PROTEIN 7.4 g/dL (6.4-8.2)
== END 2018-11-18 12:02 | disposition home or self-care (01) ==
LOC: ED 10:14
DX: K64.8 Other hemorrhoids (principal); I48.92 Unspecified atrial flutter; K21.9 Gastro-esophageal reflux disease without esophagitis; J44.9 Chronic obstructive pulmonary disease, unspecified; I48.91 Unspecified atrial fibrillation; N18.3 Chronic kidney disease, stage 3 (moderate)
CPT/HCPCS: 36415; 80053; 85025; 85610; 99283

== ENCOUNTER 2018-11-22 20:37 | Inpatient (IN) | payer MEDICARE, OTHER ==
[~2018-11-22] VITALS: Ht 182.9 cm; Wt 50.2 kg
--- NOTE | 2018-11-22 21:28 | NUR ---
PT BIB [facility] FROM HOME FOR FATIGUE X2 DAYS WITH URINARY AND BOWEL INCONTINENCE. PT STATES SOME LOWER ABD PAIN NOW. CONNECTED TO ALL MONITORING, VSS. AWAITING MD ORDERS AT THIS TIME. CALL LIGHT WITHIN REACH. MD AT BEDSIDE FOR ASSESSMENT
[2018-11-22 22:14] LABS: BASOPHILS % (AUTO) 0 % (0-1); EOSINOPHILS % (AUTO) 0 % (1-7); LYMPHOCYTES # (AUTO) 0.58 x10^3/uL (1-3.4); LYMPHOCYTES % (AUTO) 8 % (22-44); MD NO; MEAN CORPUSCULAR HGB CONC 33.3 g/dL (33.2-36.2); MEAN CORPUSCULAR VOLUME 102.2 fL (81-97); MEAN PLATELET VOLUME 7.9 fL (7.4-10.4); MONOCYTES # (AUTO) 0.71 x10^3/uL (0.2-0.8); MONOCYTES % (AUTO) 10 % (2-9); NEUTROPHILS % (AUTO) 81 % (42-75); PLATELET COUNT 280 x10^3/uL (130-400); RED BLOOD COUNT 3.83 x10^6/uL (4.38-5.82); RED CELL DISTRIBUTION WIDTH 15.5 % (9.4-14.8)
[2018-11-22 22:15] LABS: HCT (SEDRATE) 39.1 % (39.2-51.8)
--- NOTE | 2018-11-22 22:23 | NUR ---
CT PENDING LAB/CREATINE.
[2018-11-22 22:24] LABS: ALANINE AMINOTRANSFERASE 18 U/L (12-78); ALBUMIN 3.1 g/dL (3.4-5.0); ANION GAP 11 mmol/L (5-15); CALCIUM 8.1 mg/dL (8.5-10.1); CHLORIDE 107 mmol/L (98-107); CREATININE 3.04 mg/dL (0.7-1.3); INTERNATIONAL NORMALIZED RATIO 8.29 (0.93-1.1); PROTHROMBIN TIME 80.2 Seconds (9.6-11.5)
[2018-11-22 22:29] LABS: ALKALINE PHOSPHATASE 94 U/L (45-117); BILIRUBIN,TOTAL 0.8 mg/dL (0.2-1.0); TOTAL PROTEIN 7.5 g/dL (6.4-8.2); TROPONIN I < 0.015 ng/mL (0.000-0.045)
[2018-11-22] MEDS ORDERED: SODIUM CHLORIDE 0.9% 1,000ML IVBOLUS ONE (23:00)
--- NOTE | 2018-11-22 23:00 | NUR ---
OTONIEL ALCANTAR MD NOTIFIED, ORDER CHANGED TO CT W/O. FLUIDS STARTED PER NOV. VSS AT THIS TIME. TAKEN TO CT
--- NOTE | 2018-11-22 23:22 | NUR ---
PT BACK FROM CT, SLEEPING IN BED, NADN. VSS. REPORT GIVEN TO PO PINA
--- NOTE | 2018-11-22 23:22 | NUR ---
RECEIVED BS REPORT FROM SILVANA TORRES TO ASSUME PT. CARE. PT. RESTING ON GURNEY WITH EYES CLOSED. NADN. ALL MONITORS IN PLACE. CALL LIGHT IN REACH. ALL SAFETY MEASURES OBSERVED.
--- NOTE | 2018-11-23 00:44 | NUR ---
PT TO MRI
--- NOTE | 2018-11-23 00:55 | NUR ---
REPORT TO SILVANA SULLIVAN. PT. OUT OF ROOM IN MRI. JORGE PLACED PER ORDER; NATE AWARE OF NEED FOR UA WHEN PT. RETURNS TO ROOM.
--- NOTE | 2018-11-23 00:59 | NUR ---
ASSUMED CARE OF PATIENT, REPORT GIVEN FROM SILVANA FONTENOT
--- NOTE | 2018-11-23 01:31 | NUR ---
PT BACK FROM MRI. VS STABLE. CARDIAC MONTIOR ON. NSR NOTED. PT HAS PUT OUT 850 ML OF URINE IN JORGE. UA SENT. CALL LIGHT IN PLACE. WILL CONTINUE TO MONITOR.
[2018-11-23 01:49] LABS: MICROSCOPIC AUTO
[2018-11-23 01:52] LABS: CULTURE INDICATED? NO
--- NOTE | 2018-11-23 02:10 | NUR ---
PT RESTING IN ROOM REGULAR RESP. NO ACUTE DISTRESS NOTED. CALL LIGHT IN PLACE. WILL CONTINUE TO MONITOR.
--- NOTE | 2018-11-23 02:50 | NUR ---
PT RESTING IN ROOM. NO ACUTE DISTRESS NOTED. CALL LIGHT IN PLACE. VS STABLE. WILL CONTINUE TO MONITOR.
--- NOTE | 2018-11-23 04:15 | NUR ---
CALLED PHARMACY WE DO NOT HAVE THE MEDICATION BONIVA.
[2018-11-23] MEDS ORDERED: POLYETHYLENE GLYCOL 17 GM PACKET PO PRN (04:30)
[2018-11-23] MEDS ORDERED: TEMPLATE NON-FORMULARY MED. (Ibandronate Sodium** (Boniva**) 1 TAB) PO SCH (04:30)
[2018-11-23] MEDS ORDERED: ACETAMINOPHEN 325 MG TABLET PO PRN (04:30)
[2018-11-23] MEDS ORDERED: IBANDRONATE SODIUM 150 MG PO SCH (05:00)
--- NOTE | 2018-11-23 05:02 | NUR ---
PT RESTING IN ROOM. REGULAR RESP. NO ACUTE DISTRESS NOTED. CALL LIGHT IN PLACE. WILL CONTINUE TO MONITOR.
[2018-11-23] MEDS: SODIUM CHLORIDE 0.9% 1,000 ML IV SCH ×2 (05:04→18:28)
--- NOTE | 2018-11-23 05:05 | NUR ---
PT REPORTS HE NO LONGER TAKES BONIVA.
--- NOTE | 2018-11-23 07:02 | NUR ---
REPORT RECEIVED FROM SILVANA SULLIVAN. ASSUMING PRIMARY CARE OF PT.
[2018-11-23] MEDS ORDERED: TAMSULOSIN 0.4 MG CAP.ER.24H ONE (08:33)
[2018-11-23] MEDS ORDERED: OMEPRAZOLE 20 MG CAPSULE.DR ONE (08:33)
[2018-11-23] MEDS ORDERED: METOPROLOL TARTRATE 25 MG TABLET ONE (08:33)
[2018-11-23] MEDS: TAMSULOSIN 0.4 MG CAP.ER.24H PO SCH (08:37)
[2018-11-23] MEDS: CYANOCOBALAMIN 1,000 MCG TABLET PO SCH (08:38)
[2018-11-23] MEDS: OMEPRAZOLE 20 MG CAPSULE.DR PO SCH (08:38)
--- NOTE | 2018-11-23 08:44 | NUR ---
RN ROUNDED ON PT. PT IS AWAKE ALERT AND ORIENTED X4. MORNING MEDICATIONS ADMINISTERED PER EMAR. PT REFUSED VITAMINS STATED [employer] ASSET PROTECTION SPECIALIST TOOK "ME OFF THOSE." DIET TRAY ORDERED. NO COMPLAINTS OF PAIN OR DISCOMFORT AT THIS TIME. CALL LIGHT WITHIN REACH. RN TO CONTINUE TO MONITOR.
[2018-11-23] MEDS ORDERED: ERGOCALCIFEROL 50,000 UNIT CAPSULE PO SCH (09:00)
[2018-11-23] MEDS: ALBUTEROL SULFATE 2.5 MG/3 ML NPPB SCH ×3 (09:00→20:54)
[2018-11-23] MEDS ORDERED: METOPROLOL TARTRATE 25 MG TABLET PO SCH (09:00)
[2018-11-23] MEDS: BUDESONIDE 0.5 MG/2 ML INHA NPPB SCH ×2 (09:00→20:54)
--- NOTE | 2018-11-23 09:13 | NUR ---
REPORT TO SILVANA MAS.
--- NOTE | 2018-11-23 10:06 | NUR ---
JUICE GIVEN, PTS F/C TO [facility], ON WAFFLE MATTRESS, REPOSITIONED FOR COMFORT, VSS. WILL CONT TO MEET NSG NEEDS
[2018-11-23] MEDS ORDERED: BUDESONIDE 0.5 MG/2 ML INHA ONE (10:32)
[2018-11-23] MEDS ORDERED: ALBUTEROL SULFATE 2.5 MG/3 ML ONE (10:32)
[2018-11-23 11:17] LABS: BASOPHILS # (AUTO) 0.05 x10^3/uL (0-0.1); BASOPHILS % (AUTO) 1 % (0-1); EOSINOPHILS # (AUTO) 0.01 x10^3/uL (0-0.4); EOSINOPHILS % (AUTO) 0 % (1-7); LYMPHOCYTES # (AUTO) 1.73 x10^3/uL (1-3.4); LYMPHOCYTES % (AUTO) 29 % (22-44); MD NO; MEAN CORPUSCULAR HEMOGLOBIN 34.5 pg (27.5-34.5); MEAN CORPUSCULAR HGB CONC 33.8 g/dL (33.2-36.2); MEAN PLATELET VOLUME 7.6 fL (7.4-10.4); MONOCYTES # (AUTO) 0.82 x10^3/uL (0.2-0.8); MONOCYTES % (AUTO) 14 % (2-9); NEUTROPHILS # (AUTO) 3.31 x10^3/uL (1.8-6.8); NEUTROPHILS % (AUTO) 56 % (42-75); PLATELET COUNT 243 x10^3/uL (130-400); RED BLOOD COUNT 3.45 x10^6/uL (4.38-5.82); RED CELL DISTRIBUTION WIDTH 15.3 % (9.4-14.8)
[2018-11-23 11:26] LABS: ANION GAP 7 mmol/L (5-15); CALCIUM 7.8 mg/dL (8.5-10.1); CHLORIDE 110 mmol/L (98-107); CREATININE 1.92 mg/dL (0.7-1.3)
[2018-11-23 11:32] LABS: INTERNATIONAL NORMALIZED RATIO 9.71 (0.93-1.1); PROTHROMBIN TIME 93.4 Seconds (9.6-11.5)
--- NOTE | 2018-11-23 12:29 | NUR ---
MEAL TRAY GIVEN, PT RESTING ON AND OFF CONT TO MONITOR
[2018-11-23 14:30] VITALS: BP 122/68
[2018-11-23] MEDS: METOPROLOL TARTRATE 25 MG TABLET PO SCH (20:30)
[2018-11-23 21:14] VITALS: BP 148/82
[2018-11-24 02:36] VITALS: BP 140/69
[2018-11-24] MEDS: ALBUTEROL SULFATE 2.5 MG/3 ML NPPB SCH ×4 (03:00→21:00)
[2018-11-24 06:10] LABS: INTERNATIONAL NORMALIZED RATIO 4.66 (0.93-1.1); PROTHROMBIN TIME 46.1 Seconds (9.6-11.5)
[2018-11-24 06:11] LABS: BASOPHILS # (AUTO) 0.02 x10^3/uL (0-0.1); BASOPHILS % (AUTO) 0 % (0-1); EOSINOPHILS # (AUTO) 0.04 x10^3/uL (0-0.4); EOSINOPHILS % (AUTO) 1 % (1-7); LYMPHOCYTES # (AUTO) 1.43 x10^3/uL (1-3.4); LYMPHOCYTES % (AUTO) 29 % (22-44); MD NO; MEAN CORPUSCULAR HEMOGLOBIN 34.5 pg (27.5-34.5); MEAN CORPUSCULAR VOLUME 101.6 fL (81-97); MONOCYTES # (AUTO) 0.64 x10^3/uL (0.2-0.8); MONOCYTES % (AUTO) 13 % (2-9); NEUTROPHILS # (AUTO) 2.89 x10^3/uL (1.8-6.8); NEUTROPHILS % (AUTO) 58 % (42-75); PLATELET COUNT 235 x10^3/uL (130-400); RED BLOOD COUNT 2.93 x10^6/uL (4.38-5.82); RED CELL DISTRIBUTION WIDTH 15.3 % (9.4-14.8)
[2018-11-24 06:14] LABS: ANION GAP 5 mmol/L (5-15); CALCIUM 7.7 mg/dL (8.5-10.1); CHLORIDE 111 mmol/L (98-107); CREATININE 1.17 mg/dL (0.7-1.3)
[2018-11-24 06:17] LABS: CREATINE KINASE, TOTAL 156 U/L (39-308)
[2018-11-24 07:23] VITALS: BP 132/76
[2018-11-24] MEDS: TAMSULOSIN 0.4 MG CAP.ER.24H PO SCH (08:33)
[2018-11-24] MEDS: CYANOCOBALAMIN 1,000 MCG TABLET PO SCH (08:33)
[2018-11-24] MEDS: SODIUM CHLORIDE 0.9% 1,000 ML IV SCH (08:33)
[2018-11-24] MEDS: METOPROLOL TARTRATE 25 MG TABLET PO SCH ×2 (08:33→20:19)
[2018-11-24] MEDS: OMEPRAZOLE 20 MG CAPSULE.DR PO SCH (08:33)
[2018-11-24] MEDS: BUDESONIDE 0.5 MG/2 ML INHA NPPB SCH ×2 (08:35→21:00)
[2018-11-24 15:47] VITALS: BP 142/74
[2018-11-24 20:15] VITALS: BP 134/76
[2018-11-25 01:21] VITALS: BP 129/62
[2018-11-25] MEDS: ALBUTEROL SULFATE 2.5 MG/3 ML NPPB SCH ×4 (03:00→21:00)
[2018-11-25 06:00] LABS: BASOPHILS # (AUTO) 0.03 x10^3/uL (0-0.1); BASOPHILS % (AUTO) 0 % (0-1); EOSINOPHILS # (AUTO) 0.14 x10^3/uL (0-0.4); EOSINOPHILS % (AUTO) 2 % (1-7); LYMPHOCYTES # (AUTO) 1.82 x10^3/uL (1-3.4); LYMPHOCYTES % (AUTO) 28 % (22-44); MD NO; MEAN CORPUSCULAR HEMOGLOBIN 35.1 pg (27.5-34.5); MEAN CORPUSCULAR HGB CONC 34.6 g/dL (33.2-36.2); MEAN CORPUSCULAR VOLUME 101.2 fL (81-97); MONOCYTES # (AUTO) 0.71 x10^3/uL (0.2-0.8); MONOCYTES % (AUTO) 11 % (2-9); NEUTROPHILS # (AUTO) 3.74 x10^3/uL (1.8-6.8); NEUTROPHILS % (AUTO) 58 % (42-75); PLATELET COUNT 245 x10^3/uL (130-400); RED BLOOD COUNT 2.89 x10^6/uL (4.38-5.82); RED CELL DISTRIBUTION WIDTH 14.9 % (9.4-14.8)
[2018-11-25 06:06] LABS: INTERNATIONAL NORMALIZED RATIO 3.12 (0.93-1.1); PROTHROMBIN TIME 31.4 Seconds (9.6-11.5)
[2018-11-25 06:10] LABS: ALBUMIN 2.3 g/dL (3.4-5.0); ANION GAP 3 mmol/L (5-15); CALCIUM 7.7 mg/dL (8.5-10.1); CHLORIDE 110 mmol/L (98-107)
[2018-11-25 06:37] LABS: ALANINE AMINOTRANSFERASE 14 U/L (12-78); ALKALINE PHOSPHATASE 74 U/L (45-117); BILIRUBIN,TOTAL 1.2 mg/dL (0.2-1.0); CREATININE 1.21 mg/dL (0.7-1.3); TOTAL PROTEIN 5.8 g/dL (6.4-8.2)
[2018-11-25 07:41] VITALS: BP 125/67
[2018-11-25] MEDS: BUDESONIDE 0.5 MG/2 ML INHA NPPB SCH ×2 (09:00→21:00)
[2018-11-25] MEDS: OMEPRAZOLE 20 MG CAPSULE.DR PO SCH (09:10)
[2018-11-25] MEDS: TAMSULOSIN 0.4 MG CAP.ER.24H PO SCH (09:10)
[2018-11-25] MEDS: CYANOCOBALAMIN 1,000 MCG TABLET PO SCH (09:10)
[2018-11-25] MEDS: METOPROLOL TARTRATE 25 MG TABLET PO SCH ×2 (09:10→20:13)
[2018-11-25 12:11] VITALS: BP 124/69
[2018-11-25] MEDS ORDERED: WARFARIN 2 MG TABLET PO-COUM ONE (17:40)
[2018-11-25] MEDS: FINASTERIDE 5 MG TABLET PO SCH (17:45)
[2018-11-25] MEDS ORDERED: WARFARIN 1 MG TABLET PO-COUM ONE (18:00)
[2018-11-25 19:23] VITALS: BP 125/69
[2018-11-26 00:50] VITALS: BP 117/52
[2018-11-26] MEDS: ALBUTEROL SULFATE 2.5 MG/3 ML NPPB SCH ×2 (03:00→09:00)
[2018-11-26 05:25] LABS: INTERNATIONAL NORMALIZED RATIO 1.89 (0.93-1.1); PROTHROMBIN TIME 19.4 Seconds (9.6-11.5)
[2018-11-26 07:41] VITALS: BP 148/73
[2018-11-26] MEDS: BUDESONIDE 0.5 MG/2 ML INHA NPPB SCH (09:00)
[2018-11-26] MEDS ORDERED: FINA5TAB4 PO (10:11)
[2018-11-26] MEDS: FINASTERIDE 5 MG TABLET PO SCH (10:40)
[2018-11-26] MEDS: OMEPRAZOLE 20 MG CAPSULE.DR PO SCH (10:41)
[2018-11-26] MEDS: TAMSULOSIN 0.4 MG CAP.ER.24H PO SCH (10:42)
[2018-11-26] MEDS: CYANOCOBALAMIN 1,000 MCG TABLET PO SCH (10:43)
[2018-11-26] MEDS: METOPROLOL TARTRATE 25 MG TABLET PO SCH (10:45)
[2018-11-26] MEDS ORDERED: WARFARIN 2 MG TABLET PO-COUM ONE (18:00)
== END 2018-11-26 15:18 | disposition home health service (06) | DRG 725 ==
LOC: ED 22:02 → EDIP 11-23 02:32 → 3NE 11-23 14:17 → DCLOUNGE 11-26 15:09
PROVIDERS: ADMIT Family Medicine; ATTEND Family Medicine
DX: N40.1 Benign prostatic hyperplasia with lower urinary tract symptoms (principal); N17.0 Acute kidney failure with tubular necrosis; D68.69 Other thrombophilia; Z68.1 Body mass index [BMI] 19.9 or less, adult; M48.50XA Collapsed vertebra, not elsewhere classified, site unspecified, initial encounter for fracture; R64 Cachexia; N13.30 Unspecified hydronephrosis; N32.0 Bladder-neck obstruction; D50.9 Iron deficiency anemia, unspecified; D53.9 Nutritional anemia, unspecified; G25.0 Essential tremor; I12.9 Hypertensive chronic kidney disease with stage 1 through stage 4 chronic kidney disease, or unspecified chronic kidney disease; I25.2 Old myocardial infarction; I48.2 Chronic atrial fibrillation; J44.9 Chronic obstructive pulmonary disease, unspecified; K21.9 Gastro-esophageal reflux disease without esophagitis; N39.498 Other specified urinary incontinence; K40.90 Unilateral inguinal hernia, without obstruction or gangrene, not specified as recurrent; K44.9 Diaphragmatic hernia without obstruction or gangrene; M81.0 Age-related osteoporosis without current pathological fracture; N18.3 Chronic kidney disease, stage 3 (moderate); N39.490 Overflow incontinence; T45.515A Adverse effect of anticoagulants, initial encounter; Z79.01 Long term (current) use of anticoagulants; Z86.73 Personal history of transient ischemic attack (TIA), and cerebral infarction without residual deficits; R33.8 Other retention of urine
CPT/HCPCS: 36415; 71045; 72148; 74176; 76770; 80048; 80053; 81001; 82306; 82550; 82607; 83605; 83690; 84443; 84484; 85025; 85610; 85651; 86140; 87040; 93005; 94640; 99285; G0378; J7613; J7626; J7030